=== PATIENT | male | born 1970 | race Caucasian/White ===

== ENCOUNTER 2017-12-29 20:11 | Observation (INO) ==
[2017-12-29] MEDS ORDERED: Ondansetron 4 MG/2 ML VIAL IVP ONE (20:29)
[2017-12-29] MEDS ORDERED: Isovue-370 500 ML INFUS..BTL IV ONE (20:58)
[2017-12-29 21:11] LABS: Basophils % 0.2 %; Eosinophils % 0.5 %; Hematocrit 39.5 % (37.5-50.1); Hemoglobin 13.7 g/dL (12.9-16.9); Immature Granulocytes % 0.5 % (0-4); Lymphocytes # 1.6 K/mcL (0.6-4.6); Lymphocytes % 29.5 %; Mean Corpuscular HGB Conc 34.7 g/dL (31.6-35.5); Mean Corpuscular Volume 83.7 fL (83.0-100.0); Mean Platelet Volume 11.4 fL (9.4-12.4); Monocytes # 0.6 K/mcL (0.0-1.3); Monocytes % 11.3 %; Neutrophils # 3.2 K/mcL (1.6-8.9); Platelet Count 187 K/mcL (140-400); Red Blood Count 4.72 M/mcL (4.19-5.50); Red Cell Distribution Width 16.8 % (11.5-14.5)
[2017-12-29 21:52] LABS: Alanine Aminotransferase > 500 Units/L (7-52); Albumin 3.4 g/dL (3.5-5.7); Albumin/Globulin Ratio 1.1 (1.1-2.2); Alkaline Phosphatase 186 Units/L (34-104); Aspartate Amino Transferase 200 Units/L (13-39); BUN/Creatinine Ratio 9 (6-26); Bilirubin,Direct 7.6 mg/dL (0.0-0.2); Bilirubin,Indirect 4.1 mg/dL (0.0-1.2); Bilirubin,Total 11.7 mg/dL (0.3-1.0); Blood Urea Nitrogen 11 mg/dL (6-20); Calcium 8.7 mg/dL (8.6-10.3); Carbon Dioxide 29 mEq/L (23-29); Chloride 98 mEq/L (98-107); Globulin 3.1 g/dL (2.4-3.5); Glucose 97 mg/dL (70-105); Lipase 42 Units/L (11-82); Osmolality,Calculated 279 (280-300); Potassium 3.8 mEq/L (3.5-5.1); Sodium 135 mEq/L (136-145); Total Protein 6.5 g/dL (6.4-8.9); eGFR For Non-African Americans > 60 (> 60)
[2017-12-29 22:03] LABS: Bilirubin,Urine Large (Negative); Clarity,Urine Slightly Hazy (Clear); Color,Urine Amber (Yellow); Glucose,Urine (UA) Normal (Normal)
[2017-12-29 22:04] LABS: Blood,Urine Negative (Negative); Ketones,Urine Negative (Negative); Leukocyte Esterase,Urine Negative (Negative); Nitrite,Urine Negative (Negative); Protein,Urine Trace mg/dL (Neg-Trace); Specific Gravity,Urine 1.012 (1.010-1.025); Urobilinogen,Urine Normal (Normal)
--- NOTE | 2017-12-29 22:26 | Emergency Department Note ---
Disposition Clinical Impression: Jaundice Abdominal pain Qualifiers: Abdominal location: epigastric Qualified Code(s): R10.13 - Epigastric pain Hepatitis A infection Qualifiers: Hepatic coma status: without hepatic coma Qualified Code(s): B15.9 - Hepatitis A without hepatic coma Hepatitis C infection Qualifiers: Viral hepatitis chronicity: unspecified Hepatic coma status: without hepatic coma Qualified Code(s): B19.20 - Unspecified viral hepatitis C without hepatic coma Disposition: Admitted As Inpatient Condition: Fair Time of Disposition: 01:49 Abdominal Pain HPI - General Chief Complaint: ED Abdominal Pain Stated Complaint: abdominal pain Time Seen by Provider: 12/29/17 20:26 Source: patient Mode of arrival: ambulatory Limitations: no limitations Nursing Notes Reviewed: Yes Vital Signs Reviewed: Yes - History of Present Illness HPI Narrative: Patient is a 47-year-old male who presents to [facility] ED with a chief complaint of epigastric abdominal pain. States his symptoms have been ongoing for the last 2 days. Admits to nausea, no vomiting. No fever or chills. Denies any prior abdominal surgeries. Patient admits to previously being an alcoholic. Also admits to current IV heroin abuse and follows with methadone clinic. Denies any known history of hepatitis though his fiancee has hepatitis C. Denies chest pain, difficulty breathing, problems with urination. Patient does mention that his stools have changed to a clerk rating color over the last few days. Pt Subjective Complaint: abdominal pain Onset (ago): day(s) Consistency: Worsening Location: epigastric Pain Severity: moderate Pain Scale: 6 Quality: aching Radiation: none Migration to: no migration Improves with: nothing Worsens with: nothing Associated symptoms: Reports: nausea. Denies: vomiting, diarrhea, fever, chills , constipation, dysuria Treatments prior to arrival: none - Related Data Previous Rx's Medication Instructions Recorded Cyclobenzaprine [Flexeril] 10 mg PO TID #21 tablet 04/12/17 Omeprazole [PriLOSEC] 20 mg PO DAILY #14 cap 04/12/17 Cephalexin [Keflex] 500 mg PO QID #40 capsule 09/01/17 Sulfamethoxazole/Trimeth DS 1 each PO BID #20 tablet 09/01/17 [Bactrim DS] Cyclobenzaprine [Flexeril] 10 mg PO BID PRN #14 tablet 12/15/17 Naproxen [Naprosyn] 500 mg PO BID PRN #20 tablet 12/15/17 Allergies Allergy/AdvReac Type Severity Reaction Status Date / Time hydrocodone AdvReac Itching Verified 04/12/17 02:10 All systems ED: reviewed and negative except as stated. Abdominal Pain PMH - Past Medical History Medical history: Reports: no medical history Male Surgical History: Reports: other Psychiatric history: Reports: no psych history - Social History Smoking status: Current every day smoker Alcohol use: Reports: none Drug use: Reports: none Physical Exam - General Limitations: no limitations General appearance: alert, in no apparent distress - Head Head exam: atraumatic, normocephalic, normal inspection - Eye Eye exam: Present: EOMI, scleral icterus - ENT ENT exam: normal exam, normal oropharynx, mucous membranes moist - Neck Neck exam: Present: normal inspection, full ROM, trachea midline - Chest Chest inspection: Present: normal inspection, symmetric chest wall rise - Respiratory Respiratory exam: Present: normal lung sounds bilaterally - Cardiovascular Cardiovascular exam: Present: regular rate, normal rhythm, normal heart sounds - Abdominal Exam Abdominal exam: Present: soft, tenderness Abdominal tenderness: Present: RUQ, LUQ, epigastrium, moderate - Extremities Exam Extremities exam: Present: normal inspection, full ROM. Absent: tenderness, pedal edema - Neurological Exam Neurological exam: Present: alert, oriented X3 - Psychiatric Psychiatric exam: Present: normal affect, normal mood - Skin Skin exam: Present: warm, dry, intact, other (Jaundice) Course Course Narrative: Patient seen and examined. Epigastric abdominal pain. Patient is obviously jaundiced with icterus. Abdominal labs, CT abdomen and pelvis with IV contrast ordered. - Reevaluation(s) Reevaluation #1: LFTs grossly elevated with a total bilirubin over 11. Still awaiting CT scan. Hepatitis panel ordered. Time: 22:27 Reevaluation #2: CT shows periportal edema consistent with hepatitis. Pt is positive for Hep A and C. discussed with GI Dr. Seo who will see the pt in consult. Discussed with hospitalist Dr. Hendrickson who has accepted pt for admission. Time: 01:22 Vital Signs Temperature 98.4 F 12/29/17 20:21 Pulse Rate 70 12/29/17 20:21 Respiratory Rate 16 12/29/17 20:21 Blood Pressure 105/67 12/29/17 20:21 O2 Sat by Pulse Oximetry 98 12/29/17 20:21 Temperature 98.4 F 12/29/17 20:21 Pulse Rate 66 12/29/17 22:30 Respiratory Rate 20 12/29/17 22:30 Blood Pressure 124/74 12/29/17 22:30 O2 Sat by Pulse Oximetry 98 12/29/17 22:30 Oxygen Delivery Oxygen Delivery Room Air Abdominal Pain - Medical Records Medical records reviewed: Yes I reviewed the patient's medical records. - Lab Data Lab results reviewed: Yes I reviewed the patient's lab results. Result diagrams: 12/29/17 20:52 12/29/17 20:52 Lab Results 12/29/17 12/29/17 12/29/17 Range/Units 20:52 20:52 20:52 WBC 5.5 (4.3-11.1) K/mcL RBC 4.72 (4.19-5.50) M/mcL Hgb 13.7 (12.9-16.9) g/dL Hct 39.5 (37.5-50.1) % MCV 83.7 (83.0-100.0) fL MCH 29.0 (28.0-33.3) pg MCHC 34.7 (31.6-35.5) g/dL RDW 16.8 H (11.5-14.5) % Plt Count 187 (140-400) K/mcL MPV 11.4 (9.4-12.4) fL Immature Gran % 0.5 (0-4) % Seg Neutrophils % 58.0 % Lymphocytes % 29.5 % Monocytes % 11.3 % Eosinophils % 0.5 % Basophils % 0.2 % Neutrophils # 3.2 (1.6-8.9) K/mcL Lymphocytes # 1.6 (0.6-4.6) K/mcL Monocytes # 0.6 (0.0-1.3) K/mcL Eosinophils # 0.0 (0.0-0.6) K/mcL Basophils # 0.0 (0.0-0.2) K/mcL Sodium 135 L (136-145) mEq/L Potassium 3.8 (3.5-5.1) mEq/L Chloride 98 (98-107) mEq/L Carbon Dioxide 29 (23-29) mEq/L BUN 11 (6-20) mg/dL Creatinine 1.16 (0.70-1.30) mg/dL Est GFR ( Amer) > 60 (> 60) Est GFR (Non-Af Amer) > 60 (> 60) BUN/Creatinine Ratio 9 (6-26) Glucose 97 (70-105) mg/dL Calculated Osmolality 279 L (280-300) Lactic Acid 1.0 (0.5-2.2) mmol/L Calcium 8.7 (8.6-10.3) mg/dL Total Bilirubin 11.7 H (0.3-1.0) mg/dL Direct Bilirubin 7.6 H (0.0-0.2) mg/dL Indirect Bilirubin 4.1 H (0.0-1.2) mg/dL AST 200 H (13-39) Units/L ALT > 500 H (7-52) Units/L Alkaline Phosphatase 186 H (34-104) Units/L Serum Total Protein 6.5 (6.4-8.9) g/dL Albumin 3.4 L (3.5-5.7) g/dL Globulin 3.1 (2.4-3.5) g/dL Albumin/Globulin Ratio 1.1 (1.1-2.2) Lipase 42 (11-82) Units/L Urine Color (Yellow) Urine Clarity (Clear) Urine pH (5.0-8.0) pH Units Ur Specific [place] (1.010-1.025) Urine Protein (Neg-Trace) mg/dL Urine Glucose (UA) (Normal) mg/dL Urine Ketones (Negative) mg/dL Urine Blood (Negative) Urine Nitrite (Negative) Urine Bilirubin (Negative) Urine Urobilinogen (Normal) mg/dL Ur Leukocyte Esterase (Negative) Ur Culture Indicated? (NO) Hepatitis A IgM Ab (Nonreactive) Hep Bs Antigen (Nonreactive) Hep B Core IgM Ab (Nonreactive) Hepatitis C Ab Screen (Nonreactive) 12/29/17 12/29/17 Range/Units 21:27 22:34 WBC (4.3-11.1) K/mcL RBC (4.19-5.50) M/mcL Hgb (12.9-16.9) g/dL Hct (37.5-50.1) % MCV (83.0-100.0) fL MCH (28.0-33.3) pg MCHC (31.6-35.5) g/dL RDW (11.5-14.5) % Plt Count (140-400) K/mcL MPV (9.4-12.4) fL Immature Gran % (0-4) % Seg Neutrophils % % Lymphocytes % % Monocytes % % Eosinophils % % Basophils % % Neutrophils # (1.6-8.9) K/mcL Lymphocytes # (0.6-4.6) K/mcL Monocytes # (0.0-1.3) K/mcL Eosinophils # (0.0-0.6) K/mcL Basophils # (0.0-0.2) K/mcL Sodium (136-145) mEq/L Potassium (3.5-5.1) mEq/L Chloride (98-107) mEq/L Carbon Dioxide (23-29) mEq/L BUN (6-20) mg/dL Creatinine (0.70-1.30) mg/dL Est GFR ( Amer) (> 60) Est GFR (Non-Af Amer) (> 60) BUN/Creatinine Ratio (6-26) Glucose (70-105) mg/dL Calculated Osmolality (280-300) Lactic Acid (0.5-2.2) mmol/L Calcium (8.6-10.3) mg/dL Total Bilirubin (0.3-1.0) mg/dL Direct Bilirubin (0.0-0.2) mg/dL Indirect Bilirubin (0.0-1.2) mg/dL AST (13-39) Units/L ALT (7-52) Units/L Alkaline Phosphatase (34-104) Units/L Serum Total Protein (6.4-8.9) g/dL Albumin (3.5-5.7) g/dL Globulin (2.4-3.5) g/dL Albumin/Globulin Ratio (1.1-2.2) Lipase (11-82) Units/L Urine Color Christa A (Yellow) Urine Clarity Slightly Hazy (Clear) Urine pH 6.0 (5.0-8.0) pH Units Ur Specific [place] 1.012 (1.010-1.025) Urine Protein Trace (Neg-Trace) mg/dL Urine Glucose (UA) Normal (Normal) mg/dL Urine Ketones Negative (Negative) mg/dL Urine Blood Negative (Negative) Urine Nitrite Negative (Negative) Urine Bilirubin Large H (Negative) Urine Urobilinogen Normal (Normal) mg/dL Ur Leukocyte Esterase Negative (Negative) Ur Culture Indicated? NO (NO) Hepatitis A IgM Ab Reactive H (Nonreactive) Hep Bs Antigen Nonreactive (Nonreactive) Hep B Core IgM Ab Nonreactive (Nonreactive) Hepatitis C Ab Screen Reactive H (Nonreactive) - Radiology Data Radiology results reviewed: Yes I reviewed the patient's radiology results. Abdomen/Pelvis CT 12/29/17 20:58 IMPRESSION: Periportal edema has developed in the interval. This is nonspecific and may be associated with acute hepatitis, cholangitis, primary biliary cirrhosis or hydration status. Nonspecific portacaval adenopathy. Stable hypodensities in the spleen since 04/12/2017. These may represent cysts or hemangiomas. D/ / Cristopher Perea MD / Cristopher Perea MD Interpreting Provider: Cristopher Perea MD Attestation Statement - Attestation Attestation: Dr Asher note: Pt seen in conjunction w/resident Dr Quintanilla; Please see her charting for complete docuentation; I agree w/ pt's treatment and disposition and spent face to face time w/ the pt; progressive abdominal discomfort for 3 days. Generalized fatigue. Patient noticed more yellowing of his skin of the last 2 days. Admits to IV drug abuse. Known hepatitis C and a. While signs are stable at time of admission. Will be admitted for supportive care and further evaluation. Symptoms were moderate and now mild. Accepted to the hospitalist Dr. Sabillon ; CT scan results and blood work has been reviewed.
[2017-12-29 23:44] LABS: Hepatitis B Core IgM Nonreactive (Nonreactive); Hepatitis B Surface Antigen Nonreactive (Nonreactive)
[2017-12-29 23:48] LABS: Hepatitis A Antibody IgM Reactive (Nonreactive)
[2017-12-29 23:49] LABS: Hepatitis C Virus Antibody Reactive (Nonreactive)
[2017-12-30] MEDS ORDERED: 0.9 % Sodium Chloride 1,000 ML IVC ONE ×2 (00:30→01:19)
[2017-12-30] MEDS ORDERED: Naloxone 0.4 MG/ML INJ IVP PRN (08:23)
[2017-12-30] MEDS ORDERED: Ringers Solution, Lactated 1,000 ML IVC SCH (08:30)
[2017-12-30] MEDS ORDERED: Methadone Oral Concentrate 50 MG/5 ML UDC PO SCH (09:00)
--- NOTE | 2017-12-30 09:11 | Internal Med History&Physical ---
Date of Encounter: 12/30/17 Time of Encounter: 08:30 Internal Medicine - H&P: HPI Chief complaint: "Yellow" Admitted From: Emergency Dept Plans for Post Hospital Care: Home History of present illness: Mr. Mccullough is a 47 year old male with no reported medical history presented to ED due to "yellow." Pt has noticed symptoms over last few days but was getting worse. No fever or chills. No N/V or diarrhea. Does have itching of his back. No prior history. Nothing made it better or worse. Evaluated in ED and placed in hospital for further workup. He started at Methadone clinic a month ago. Significant other had Hep C and took meds and is cured. At this time he is upset and wants to leave to smoke. Past Med Surg Social Fam HX - Past Medical History Medical history: no medical history Psychiatric history: no psych history - Past Surgical History Additional surgical history: r hand. r shoulder - Social History Smoking Status: Current every day smoker Packs per day: 1 Smokeless Tobacco Status: No Alcohol use: none Drug use: none - Family History Mother Race: Hx Family Cancer: No Hx Family GI Disorders: No Hx Family Medical Disorders: No Internal Medicine - H&P: Meds Methadone Oral Concentrate [Methadone] 50 mg PO DAILY 12/30/17 [History] Pantoprazole Sodium 40 mg PO DAILY #30 tablet. 12/30/17 [Rx] 3 Allergy/AdvReac Type Severity Reaction Status Date / Time hydrocodone AdvReac Itching Verified 12/30/17 11:25 All Systems PM: A 10-system review of systems was performed and is negative for pertinent findings except as documented above in the HPI. - Constitutional Constitutional: malaise - EENT Eyes: no diplopia, no pain Ears: no decreased hearing Nose, mouth and throat: no dry mouth, no nasal congestion - Cardiovascular Cardiovascular ROS IM: no chest pain, no orthopnea, no palpitations - Respiratory Respiratory: cough, no dyspnea on exertion, no chest congestion - Gastrointestinal Gastrointestinal: abdominal pain, no diarrhea, no nausea - Genitourinary Genitourinary ROS male: no difficulty urinating, no urinary hesitancy - Musculoskeletal Musculoskeletal ROS IM: no arthralgias, no muscle weakness - Integumentary Integumentary IM: no new lesions, no rash - Neurological Neurological ROS: no dizziness, no tingling - Endocrine Endocrine IM: no cold intolerance, no flushing - Hematologic/Lymphatic Hematologic/Lymphatic: no easy bleeding - Allergic/Immunologic Allergic/Immunologic: no itchy eyes, no wheezing - Constitutional Vitals: Temp Pulse Resp BP Pulse Ox 98.2 F 60 14 105/60 99 12/30/17 07:53 12/30/17 07:53 12/30/17 07:53 12/30/17 07:53 12/30/17 07:53 General appearance: Present: A&O X 3, answers questions appropriately Exam: See below - Head Head exam: Present: normocephalic - Eye Eye exam: Present: EOMI, scleral icterus Pupils: Present: PERRL - ENT ENT exam: Present: mucous membranes moist - Neck Neck exam general surgery: Present: normal inspection. Absent: thyromegaly - Respiratory Respiratory exam: Present: CTAB. Absent: rales, rhonchi, wheezes - Cardiovascular Cardiovascular exam: Present: RRR. Absent: systolic murmur, tachycardia - GI/Abdominal GI/Abdominal exam: Present: normal bowel sounds, soft. Absent: tenderness - Extremities Exam Extremities exam: Present: full ROM, warm - Neurological Exam Neurological exam: Present: alert, oriented X3, no focal deficits - Skin Additional comments: Jaundiced Internal Med - H&P Results - Labs CBC & Chem 7: 12/29/17 20:52 12/30/17 11:52 - Assessment and plan (1) Hepatitis A infection Status: Acute Assessment and plan: Place in observation. IV fluids. GI eval for further recommendations and outpatient follow up. Qualifiers: Hepatic coma status: without hepatic coma Qualified Code(s): B15.9 - Hepatitis A without hepatic coma (2) Hepatitis C infection Status: Acute Assessment and plan: Additional labs ordered. Follow up in GI office outpatient. Qualifiers: Viral hepatitis chronicity: unspecified Hepatic coma status: without hepatic coma Qualified Code(s): B19.20 - Unspecified viral hepatitis C without hepatic coma (3) Jaundice Status: Acute Assessment and plan: Due to acute hepatitis PRN Benadryl for itching. (4) GERD (gastroesophageal reflux disease) Status: Chronic Assessment and plan: PPI added Qualifiers: Esophagitis presence: esophagitis presence not specified Qualified Code(s) : K21.9 - Gastro-esophageal reflux disease without esophagitis (5) Tobacco abuse Status: Chronic Assessment and plan: Cessation counselling. (6) Opiate dependence Status: Chronic Assessment and plan: Continue methadone. Qualifiers: Substance use status: in remission Qualified Code(s): F11.21 - Opioid dependence, in remission - Time Spent With Patient Total time spent is greater than 50% in coordination of care (as documented) at patient's floor/unit and/or counseling patient:
[2017-12-30 11:33] VITALS: BP 93/53
--- NOTE | 2017-12-30 12:10 | Discharge Summary ---
- NOTES TO OUTPATIENT PROVIDER Notes to Outpatient Provider: Pt diagnosed with acute hep A and positive for hep C. Following up with GI. Orders not resulted at time of discharge: Pending orders 12/30/17 11:52 AFP Tumor Marker Non- Stat ADRIAN IgG RODNEY rflx IFA Stat Usoxa-2-Oegllkyrfnq Stat Ceruloplasmin Stat Comprehensive Metabolic Panel Stat Ferritin Stat Hepatitis C Qnt Reflx Genotype Stat MPO/PR3 (ANCA) Antibodies Stat PT/INR [Prothrombin Time INR] [COAG] Stat 12/30/17 12:02 F-Actin IgG Reflex Sm Muscle Stat Mitochondrial M2 Antibody, IgG Stat Date of Encounter: 12/30/17 Time of Encounter: 12:07 - Discharge Diagnosis (1) Hepatitis A infection Priority: Primary Status: Acute Qualifiers: Hepatic coma status: without hepatic coma Qualified Code(s): B15.9 - Hepatitis A without hepatic coma (2) Hepatitis C infection Priority: Secondary Status: Acute Qualifiers: Viral hepatitis chronicity: unspecified Hepatic coma status: without hepatic coma Qualified Code(s): B19.20 - Unspecified viral hepatitis C without hepatic coma (3) Jaundice Priority: Secondary Status: Acute (4) GERD (gastroesophageal reflux disease) Priority: Secondary Status: Chronic Qualifiers: Esophagitis presence: esophagitis presence not specified Qualified Code(s) : K21.9 - Gastro-esophageal reflux disease without esophagitis (5) Opiate dependence Priority: Secondary Status: Chronic Qualifiers: Substance use status: in remission Qualified Code(s): F11.21 - Opioid dependence, in remission (6) Tobacco abuse Priority: Secondary Status: Chronic Hospital course: Mr. Mccullough is a 47 year old male placed in observation for jaundice. Found to have acute hep A and positive hep C. Mr Mccullough was placed in observation. He was started on IV fluids and continued on his home methadone. He was evaluated by GI and further labs drawn. He is to follow up as outpatient. Discharge discussed with: patient Time spent discussing smoking cessation with patient: 3 to 10 minutes - Time Spent with Patient Total time spent providing and/or coordinating discharge services: - Discharge Medications Prescriptions: Pantoprazole Sodium 40 mg PO DAILY #30 tablet. Home Medications: Methadone Oral Concentrate [Methadone] 50 mg PO DAILY 12/30/17 [History] Pantoprazole Sodium 40 mg PO DAILY #30 tablet. 12/30/17 [Rx] Allergies/Adverse Reactions: 3 Allergy/AdvReac Type Severity Reaction Status Date / Time hydrocodone AdvReac Itching Verified 12/30/17 11:25 Date of admission: 12/30/17 01:52 Primary care physician: PCP NONE Consults: 12/30/17 02:38 Consult to Nutrition [CONS] Routine Comment: Consulting Provider: NUTRITION Reason for Dietary Consult: Other Discharging clinician: Tomás Mon Anticipated date of discharge: 12/30/17 - Constitutional Vitals: Temp Pulse Resp BP Pulse Ox 97.9 F 58 14 93/53 98 12/30/17 11:32 12/30/17 11:32 12/30/17 11:32 12/30/17 11:32 12/30/17 11:32 General appearance: Present: A&O X 3, pleasant Exam: See below - Head Head exam: Present: normocephalic - Eye Eye exam: Present: scleral icterus - Respiratory Respiratory exam: Present: CTAB. Absent: rales, wheezes - Cardiovascular Cardiovascular exam: Present: RRR. Absent: tachycardia - Skin Additional comments: Jaundiced. - Patient Status Disposition: Home, Self-Care Condition: Good Functional capacity at discharge: independent ambulation Overall status at discharge: patient is progressing back to baseline - Discharge Instructions Follow Up With: Freddie Diego MD [Partnered Physician] - 01/06/18 9:15 am (You will receive a new patient packet in the mail. Please bring this with you along with your photo ID, insurance card and any medications you are on. If you need to cancel , please give a 24 hour notice. Thank you) Kathy Seo MD [Partnered Physician] - (Web request entered. Office will call with the date and time of appointment. Thank you) Additional Instructions: Follow up with PCP in 1 week. Follow up with GI in 2-3 weeks. Advance to usual diet, activity as tolerated. - Diet and Activity Activity: increase activity as tolerated Diet: advance to your usual diet
[2017-12-30 12:11] LABS: Prothrombin Time 11.2 Seconds (9.4-12.1)
[2017-12-30 13:35] LABS: Alanine Aminotransferase > 500 Units/L (7-52); Albumin 2.9 g/dL (3.5-5.7); Alkaline Phosphatase 161 Units/L (34-104); Aspartate Amino Transferase 163 Units/L (13-39); BUN/Creatinine Ratio 11 (6-26); Bilirubin,Total 9.7 mg/dL (0.3-1.0); Blood Urea Nitrogen 9 mg/dL (6-20); Calcium 8.1 mg/dL (8.6-10.3); Carbon Dioxide 27 mEq/L (23-29); Chloride 107 mEq/L (98-107); Ferritin 278 ng/mL (20-250); Globulin 2.9 g/dL (2.4-3.5); Glucose 111 mg/dL (70-105); Osmolality,Calculated 283 (280-300); Sodium 137 mEq/L (136-145); Total Protein 5.8 g/dL (6.4-8.9); eGFR For Non-African Americans > 60 (> 60)
--- NOTE | 2017-12-30 14:13 | Gastroenterology Consult Note ---
Date of Encounter: 12/30/17 Time of Encounter: 11:00 - Assessment and plan (1) Hepatitis C antibody test positive Status: Acute Assessment and plan: Hep C screening positive. Check Hep C quant and genotype to determine if he has an active infection. Complete liver workup. Follow up in GI office in 3-4 weeks. (2) Hepatitis A infection Status: Acute Assessment and plan: Hepatitis A positive. On admission TB 11.7, AST 200, ALT >500. Today TB 9.7, AST 163, ALT >500. Continue to monitor hepatic profile, and follow up in GI office. Qualifiers: Hepatic coma status: without hepatic coma Qualified Code(s): B15.9 - Hepatitis A without hepatic coma (3) Jaundice Status: Acute Assessment and plan: Secondary to hepatitis A. (4) GERD (gastroesophageal reflux disease) Status: Acute Assessment and plan: Start PPI, if symptoms not improved in 4 weeks will consider EGD. Qualifiers: Esophagitis presence: esophagitis presence not specified Qualified Code(s) : K21.9 - Gastro-esophageal reflux disease without esophagitis - Time Spent With Patient Total time spent is greater than 50% in coordination of care (as documented) at patient's floor/unit and/or counseling patient: GI History of Present Illness - Data of Consult Patient: new to practice Consult date: 12/30/17 Requesting Physician: Tomás Mon DO - Consult Narrative Reason for consult: Hepatitis A and C History of present illness: Mr. Mccullough is a 47 year old male who presents with complaints of epigastric pain that started 2 days prior to admission. He admits to nausea, but denies vomiting. In the ED he admited to current IV heroin abuse and following with methadone clinic, during my exam he denied any IV drug use. He did admit to intranasal drug use. Denies any known history of hepatitis though his fiancee has been treated for hepatitis C recently. He denies fever, chills, chest pain, difficulty breathing, diarrhea, constipation, melena. Hepatitis profile positive for Hep A and C. CT A/P shows periportal edema Procedure: None NSAIDs: None Anticoagulation: None Past Med Surg Social Fam HX - Past Medical History Medical history: no medical history Psychiatric history: no psych history - Past Surgical History Additional surgical history: r hand. r shoulder - Social History Smoking Status: Current every day smoker Packs per day: 1 Smokeless Tobacco Status: No Alcohol use: none Drug use: none - Gastrointestinal Gastrointestinal: Present: as per HPI - Constitutional Constitutional: as per HPI - EENT Eyes: as per HPI Ears: Present: as per HPI Nose, mouth and throat: Present: as per HPI - Cardiovascular Cardiovascular ROS: Present: as per HPI - Respiratory Respiratory IM: Present: as per HPI - Genitourinary Genitourinary: Absent: change in color, Urinary frequency - Neurological ROS Neurological GI: Present: as per HPI - Hematologic/Lymphatic Hematologic/Lymphatic pediatric: Present: as per HPI - Musculoskeletal Musculoskeletal ROS GI: Present: as per HPI - Integumentary Integumentary GI: Present: as per HPI - Psychiatric ROS Psychiatric GI: Present: as per HPI - Endocrine Endocrine IM: Present: as per HPI - Constitutional Vitals: Temp Pulse Resp BP Pulse Ox 97.9 F 58 14 93/53 98 12/30/17 11:32 12/30/17 11:32 12/30/17 11:32 12/30/17 11:32 12/30/17 11:32 General appearance: Present: cooperative, A&O X 3, no acute distress, answers questions appropriately - Head Head exam: Present: atraumatic, normocephalic - Eye Eye exam: Present: scleral icterus - ENT ENT exam: Present: mucous membranes moist - Neck Neck exam general surgery: Present: normal inspection, trachea midline - Respiratory Respiratory exam: Present: CTAB. Absent: rales, rhonchi - Cardiovascular Cardiovascular exam: Present: RRR, +S1, +S2 - GI/Abdominal GI/Abdominal exam: Present: soft, tenderness (epigastric), no peritoneal signs. Absent: distended, firm, guarding - Rectal Rectal exam: Present: deferred - Extremities Exam Extremities exam: Present: warm - Neurological Exam Neurological exam: Present: no focal deficits - Psychiatric Psychiatric exam: Present: normal affect, normal mood - Skin Skin exam: Present: dry, intact, warm. Absent: normal color (Jaundice) Results - Labs CBC & Chem 7: 12/29/17 20:52 12/30/17 11:52 Labs: Last Result Calcium 8.1 mg/dL (8.6-10.3) L 12/30/17 11:52 Ferritin 278 ng/mL (20-250) H 12/30/17 11:52 Entire Visit Hgb 13.7 g/dL (12.9-16.9) 12/29/17 20:52 Hct 39.5 % (37.5-50.1) 12/29/17 20:52 PT 11.2 Seconds (9.4-12.1) 12/30/17 11:52 Ferritin 278 ng/mL (20-250) H 12/30/17 11:52 Total Bilirubin 9.7 mg/dL (0.3-1.0) H 12/30/17 11:52 AST 163 Units/L (13-39) H 12/30/17 11:52 ALT > 500 Units/L (7-52) H 12/30/17 11:52 Lipase 42 Units/L (11-82) 12/29/17 20:52 - ABG ABG results: PT/INR, D-dimer PT 11.2 Seconds (9.4-12.1) 12/30/17 11:52 Consult Discharge Plan - Plan Additional Instructions: Follow up with PCP in 1 week. Follow up with GI in 2-3 weeks. Advance to usual diet, activity as tolerated. Referrals: Freddie Diego MD [Partnered Physician] - 01/06/18 9:15 am (You will receive a new patient packet in the mail. Please bring this with you along with your photo ID, insurance card and any medications you are on. If you need to cancel , please give a 24 hour notice. Thank you) Kathy Seo MD [Partnered Physician] - (Web request entered. Office will call with the date and time of appointment. Thank you) Prescriptions: Pantoprazole Sodium 40 mg PO DAILY #30 tablet.
[2018-01-02 07:55] LABS: AFP Tumor Marker Non-Pregnant 10 ng/mL (0-9); ANA IgG by ELISA NONE DETECTED (None Detected); HCV Quant Log <1.00 log IU/mL; Myeloperoxidase Ab 0 AU/mL (0-19); Serine Protease-3 Antibody 1 AU/mL (0-19)
[2018-01-02 07:56] LABS: F-Actin (sm muscle) Ab IgG 13 Units (0-19)
== END 2017-12-30 12:56 | disposition home or self-care (01) ==
LOC: 3ANU 20:11 → EMEROOARM 20:11 → SUATTDRO 12-30 01:52 → 3ANU 12-30 02:16
PROVIDERS: ADMIT Internal Medicine; ATTEND Internal Medicine

== ENCOUNTER 2018-02-09 19:12 | Inpatient (IN) ==
[2018-02-09] MEDS ORDERED: 0.9 % Sodium Chloride 1,000 ML IVC ONE (20:01)
[2018-02-09 20:23] LABS: Basophils % 0.4 %; Eosinophils # 0.1 K/mcL (0.0-0.6); Eosinophils % 2.1 %; Hematocrit 31.6 % (37.5-50.1); Hemoglobin 10.8 g/dL (12.9-16.9); Immature Granulocytes % 0.5 % (0-4); Lymphocytes # 1.5 K/mcL (0.6-4.6); Lymphocytes % 26.1 %; Mean Corpuscular HGB Conc 34.2 g/dL (31.6-35.5); Mean Corpuscular Hemoglobin 30.3 pg (28.0-33.3); Mean Corpuscular Volume 88.5 fL (83.0-100.0); Mean Platelet Volume 10.6 fL (9.4-12.4); Monocytes # 0.6 K/mcL (0.0-1.3); Monocytes % 11.1 %; Neutrophils # 3.4 K/mcL (1.6-8.9); Platelet Count 184 K/mcL (140-400); Red Blood Count 3.57 M/mcL (4.19-5.50); Red Cell Distribution Width 17.5 % (11.5-14.5); Segmented Neutrophils % 59.8 %
[2018-02-09 20:28] LABS: INR 1.2
--- NOTE | 2018-02-09 20:42 | Emergency Department Note ---
Disposition Clinical Impression: Hepatitis Disposition: Admitted As Inpatient Condition: Good Time of Disposition: 00:05 General Adult HPI - General Chief complaint: ED Recheck/Abnormal Lab/Rx Stated complaint: "Hep A sent by " Time Seen by Provider: 02/09/18 19:54 Source: patient Limitations: no limitations Nursing Notes Reviewed: Yes Vital Signs Reviewed: Yes - History of Present Illness HPI Narrative: 48 y/o M with recently diagnosed hepatitis A and C 1 month ago presents with worsening jaundice for the past 5 days and abdominal pain for the last 3 days. Patient states that he had blood work done by his PCP 5 days ago at onset of his jaundice and received a call today stating that his liver enzymes were acutely elevated and recommended he come into the hospital for evaluation given the additional onset of pain. Patient states the abdominal pain is located in the RUQ rated as a 6/10. He notes some abebe stools since onset of the jaundice but denies any nausea, vomiting, fevers, chest pain, SOB, extremity swelling or hematochezia and hematuria. Patient began using IV heroin intermittently 2-3 months ago and has been taking Methadone in an attempt to stop. Last used IV heroin 2 days ago. Patient denies recent alcohol use. Of note, patient had titers drawn to determine the activity of his Hep C infection but has not yet had his results reported to him. He is set to see GI on March 06, 2018. Pain Scale: 5 - Related Data Home Medications Medication Instructions Recorded Confirmed Methadone Oral Concentrate 60 mg PO DAILY 02/10/18 02/10/18 [Methadone] Allergies Allergy/AdvReac Type Severity Reaction Status Date / Time hydrocodone AdvReac Itching Verified 12/30/17 11:25 Constitutional: Denies: fever, chills, weakness Eyes: Reports: other (jaundice) Cardiovascular: Denies: chest pain, palpitations, dyspnea on exertion, edema, syncope Respiratory: Denies: cough, dyspnea, wheezes, hemoptysis Gastrointestinal: Reports: abdominal pain (RUQ), other (abebe stools). Denies: nausea, vomiting, diarrhea Genitourinary: Reports: other (dark urine). Denies: urgency, dysuria, frequency , hematuria Musculoskeletal: Denies: back pain, neck pain, arthralgia, myalgia Integumentary: Denies: rash, abrasion, lesions, pruritus Neurological: Denies: headache, weakness, numbness, paresthesias, confusion, abnormal gait Past Medical History - Past Medical History Medical history: Reports: hepatitis Psychiatric history: Reports: no psych history - Social History Smoking Status: Current every day smoker Smokeless Tobacco Status: No Alcohol use: Reports: none Drug use: Reports: IV Drug Use Physical Exam - General Limitations: no limitations General appearance: alert, in no apparent distress - Head Head exam: atraumatic, normocephalic, normal inspection - Eye Eye exam: Present: PERRL, scleral icterus - ENT ENT exam: normal oropharynx, mucous membranes moist, mucous membranes dry, other (jaundice sublingual mucosa) - Neck Neck exam: Present: normal inspection, full ROM, trachea midline - Chest Chest inspection: Present: normal inspection, symmetric chest wall rise - Respiratory Respiratory exam: Present: normal lung sounds bilaterally - Cardiovascular Cardiovascular exam: Present: regular rate, normal rhythm, normal heart sounds - Abdominal Exam Abdominal exam: Present: soft, normal bowel sounds. Absent: distention, guarding, rebound, rigidity Abdominal tenderness: Present: RUQ - Extremities Exam Extremities exam: Present: normal inspection, full ROM. Absent: tenderness, pedal edema - Neurological Exam Neurological exam: Present: alert, oriented X3 - Psychiatric Psychiatric exam: Present: normal affect, normal mood - Skin Skin exam: Present: warm, dry, intact, other (jaundiced). Absent: rash Course - Consultations Consultation #1: The case was signed out to Dr. Hughes. Dr. Hughes did discuss with the hospitalist on my behalf. Patient was accepted for admission. Vital Signs Temperature 98.6 F 02/09/18 19:31 Pulse Rate 64 02/09/18 19:31 Respiratory Rate 15 02/09/18 19:31 Blood Pressure 118/78 02/09/18 19:31 O2 Sat by Pulse Oximetry 100 02/09/18 19:31 Temperature 97.9 F 02/10/18 18:49 Pulse Rate 50 02/10/18 18:49 Respiratory Rate 14 02/10/18 18:49 Blood Pressure 98/60 02/10/18 18:49 O2 Sat by Pulse Oximetry 100 02/10/18 18:49 Oxygen Delivery Oxygen Delivery Room Air Medical Decision Making - MDM Narrative Medical decision making narrative: Patient presented with RUQ abdominal pain which was the same pain he felt during his initial visit and subsequent diagnosis with Hep A and Hep C. Patient significantly jaundiced on exam with significant tenderness to RUQ. Blood work done here in the ED shows liver enzymes elevated >500 as well as a total billiubin of 13.7. Given location of pain US of the gallbladder ordered to rule out acute cholecystitis as a contributor to his current abdominal pain. Patient will be admitted in order to control his pain, fluid resuscitate and further evaluate his hepatitis. Spoke with the patient concerning this plan and he is in understanding and agreement. I discussed the patient's situation with the on-call hospitalist, who accepted him for admission. - Lab Data Lab results reviewed: Yes I reviewed the patient's lab results. Lab results narrative: Bilirubin was elevated at 8.8 with elevation in AST and ALTs as well Result diagrams: 02/10/18 05:21 02/10/18 05:21 Lab Results 02/09/18 02/09/18 02/09/18 Range/Units 20:08 20:08 20:08 WBC 5.7 (4.3-11.1) K/mcL RBC 3.57 L (4.19-5.50) M/mcL Hgb 10.8 L (12.9-16.9) g/dL Hct 31.6 L (37.5-50.1) % MCV 88.5 (83.0-100.0) fL MCH 30.3 (28.0-33.3) pg MCHC 34.2 (31.6-35.5) g/dL RDW 17.5 H (11.5-14.5) % Plt Count 184 (140-400) K/mcL MPV 10.6 (9.4-12.4) fL Immature Gran % 0.5 (0-4) % Seg Neutrophils % 59.8 % Lymphocytes % 26.1 % Monocytes % 11.1 % Eosinophils % 2.1 % Basophils % 0.4 % Neutrophils # 3.4 (1.6-8.9) K/mcL Lymphocytes # 1.5 (0.6-4.6) K/mcL Monocytes # 0.6 (0.0-1.3) K/mcL Eosinophils # 0.1 (0.0-0.6) K/mcL Basophils # 0.0 (0.0-0.2) K/mcL PT 13.0 H (9.4-12.1) Seconds INR 1.2 Sodium 134 L (136-145) mEq/L Potassium 3.6 (3.5-5.1) mEq/L Chloride 102 (98-107) mEq/L Carbon Dioxide 25 (23-29) mEq/L BUN 9 (6-20) mg/dL Creatinine 0.81 (0.70-1.30) mg/dL Est GFR ( Amer) > 60 (> 60) Est GFR (Non-Af Amer) > 60 (> 60) BUN/Creatinine Ratio 11 (6-26) Glucose 134 H (70-105) mg/dL Calculated Osmolality 279 L (280-300) Lactic Acid (0.5-2.2) mmol/L Calcium 8.8 (8.6-10.3) mg/dL Total Bilirubin 13.7 H (0.3-1.0) mg/dL Direct Bilirubin 8.8 H (0.0-0.2) mg/dL Indirect Bilirubin 4.9 H (0.0-1.2) mg/dL AST 515 H (13-39) Units/L ALT > 500 H (7-52) Units/L Alkaline Phosphatase 157 H (34-104) Units/L Serum Total Protein 7.1 (6.4-8.9) g/dL Albumin 3.3 L (3.5-5.7) g/dL Globulin 3.8 H (2.4-3.5) g/dL Albumin/Globulin Ratio 0.9 L (1.1-2.2) Lipase 28 (11-82) Units/L Urine Color (Yellow) Urine Clarity (Clear) Urine pH (5.0-8.0) pH Units Ur Specific [place] (1.010-1.025) Urine Protein (Neg-Trace) mg/dL Urine Glucose (UA) (Normal) mg/dL Urine Ketones (Negative) mg/dL Urine Blood (Negative) Urine Nitrite (Negative) Urine Bilirubin (Negative) Urine Urobilinogen (Normal) mg/dL Ur Leukocyte Esterase (Negative) Urine Microscopic RBC (0-3) per hpf Urine Microscopic WBC (0-3) per hpf Ur Squamous Epith Cells (None-Few) per lpf Other Crystals Urine Bacteria (None-Few) per hpf Urine Mucus (Few) Ur Culture Indicated? (NO) Acetaminophen < 10 L (10-20) mcg/mL Hepatitis A IgM Ab (Nonreactive) Hep Bs Antigen (Nonreactive) Hep B Core IgM Ab (Nonreactive) Hepatitis C Ab Screen (Nonreactive) 02/09/18 02/09/18 02/09/18 Range/Units 20:08 20:08 20:20 WBC (4.3-11.1) K/mcL RBC (4.19-5.50) M/mcL Hgb (12.9-16.9) g/dL Hct (37.5-50.1) % MCV (83.0-100.0) fL MCH (28.0-33.3) pg MCHC (31.6-35.5) g/dL RDW (11.5-14.5) % Plt Count (140-400) K/mcL MPV (9.4-12.4) fL Immature Gran % (0-4) % Seg Neutrophils % % Lymphocytes % % Monocytes % % Eosinophils % % Basophils % % Neutrophils # (1.6-8.9) K/mcL Lymphocytes # (0.6-4.6) K/mcL Monocytes # (0.0-1.3) K/mcL Eosinophils # (0.0-0.6) K/mcL Basophils # (0.0-0.2) K/mcL PT (9.4-12.1) Seconds INR Sodium (136-145) mEq/L Potassium (3.5-5.1) mEq/L Chloride (98-107) mEq/L Carbon Dioxide (23-29) mEq/L BUN (6-20) mg/dL Creatinine (0.70-1.30) mg/dL Est GFR ( Amer) (> 60) Est GFR (Non-Af Amer) (> 60) BUN/Creatinine Ratio (6-26) Glucose (70-105) mg/dL Calculated Osmolality (280-300) Lactic Acid 1.6 (0.5-2.2) mmol/L Calcium (8.6-10.3) mg/dL Total Bilirubin (0.3-1.0) mg/dL Direct Bilirubin (0.0-0.2) mg/dL Indirect Bilirubin (0.0-1.2) mg/dL AST (13-39) Units/L ALT (7-52) Units/L Alkaline Phosphatase (34-104) Units/L Serum Total Protein (6.4-8.9) g/dL Albumin (3.5-5.7) g/dL Globulin (2.4-3.5) g/dL Albumin/Globulin Ratio (1.1-2.2) Lipase (11-82) Units/L Urine Color [place] A (Yellow) Urine Clarity Turbid A (Clear) Urine pH 6.0 (5.0-8.0) pH Units Ur Specific [place] 1.019 (1.010-1.025) Urine Protein Trace (Neg-Trace) mg/dL Urine Glucose (UA) Normal (Normal) mg/dL Urine Ketones Negative (Negative) mg/dL Urine Blood Negative (Negative) Urine Nitrite Negative (Negative) Urine Bilirubin Large H (Negative) Urine Urobilinogen Normal (Normal) mg/dL Ur Leukocyte Esterase Small H (Negative) Urine Microscopic RBC 0-3 (0-3) per hpf Urine Microscopic WBC 0-3 (0-3) per hpf Ur Squamous Epith Cells Few (None-Few) per lpf Other Crystals Present Urine Bacteria Few (None-Few) per hpf Urine Mucus Many H (Few) Ur Culture Indicated? YES A (NO) Acetaminophen (10-20) mcg/mL Hepatitis A IgM Ab [place] H (Nonreactive) Hep Bs Antigen Nonreactive (Nonreactive) Hep B Core IgM Ab Nonreactive (Nonreactive) Hepatitis C Ab Screen Reactive H (Nonreactive) - Radiology Data Radiology results reviewed: Yes I reviewed the patient's radiology results. gallbladder ultrasound and pericholecystic fluid Critical Care Time Critical Care Time: No
[2018-02-09 20:46] LABS: Clarity,Urine Turbid (Clear); Color,Urine Orange (Yellow); Glucose,Urine (UA) Normal (Normal)
[2018-02-09 20:47] LABS: Bilirubin,Urine Large (Negative); Blood,Urine Negative (Negative); Ketones,Urine Negative (Negative); Leukocyte Esterase,Urine Small (Negative); Nitrite,Urine Negative (Negative); Protein,Urine Trace mg/dL (Neg-Trace); Specific Gravity,Urine 1.019 (1.010-1.025); Urobilinogen,Urine Normal (Normal)
[2018-02-09 20:47] LABS: Acetaminophen < 10 mcg/mL (10-20); Alanine Aminotransferase > 500 Units/L (7-52); Albumin 3.3 g/dL (3.5-5.7); Albumin/Globulin Ratio 0.9 (1.1-2.2); Alkaline Phosphatase 157 Units/L (34-104); Aspartate Amino Transferase 515 Units/L (13-39); BUN/Creatinine Ratio 11 (6-26); Bilirubin,Direct 8.8 mg/dL (0.0-0.2); Bilirubin,Indirect 4.9 mg/dL (0.0-1.2); Bilirubin,Total 13.7 mg/dL (0.3-1.0); Blood Urea Nitrogen 9 mg/dL (6-20); Calcium 8.8 mg/dL (8.6-10.3); Carbon Dioxide 25 mEq/L (23-29); Chloride 102 mEq/L (98-107); Globulin 3.8 g/dL (2.4-3.5); Glucose 134 mg/dL (70-105); Lipase 28 Units/L (11-82); Osmolality,Calculated 279 (280-300); Potassium 3.6 mEq/L (3.5-5.1); Sodium 134 mEq/L (136-145); Total Protein 7.1 g/dL (6.4-8.9); eGFR For Non-African Americans > 60 (> 60)
[2018-02-09 20:54] LABS: Mucus,Urine Many (Few)
[2018-02-09 20:55] LABS: RBC,Urine 0-3 per hpf (0-3); Squamous Epithelial Cell,Urine Few per lpf (None-Few); WBC,Urine 0-3 per hpf (0-3)
[2018-02-09 20:56] LABS: Bacteria,Urine Few per hpf (None-Few)
[2018-02-09 22:10] LABS: Hepatitis B Core IgM Nonreactive (Nonreactive); Hepatitis B Surface Antigen Nonreactive (Nonreactive)
[2018-02-09 22:47] LABS: Hepatitis C Virus Antibody Reactive (Nonreactive)
[2018-02-10] MEDS ORDERED: Naloxone 0.4 MG/ML INJ IVP PRN (03:22)
[2018-02-10] MEDS ORDERED: Ondansetron 4 MG/2 ML VIAL IVP PRN (03:22)
--- NOTE | 2018-02-10 04:23 | Internal Med History&Physical ---
Date of Encounter: 02/10/18 Time of Encounter: 03:00 Internal Medicine - H&P: HPI Chief complaint: abdominal pain Admitted From: Emergency Dept Plans for Post Hospital Care: Home History of present illness: Mr. Mccullough is a 48 year old male who presents with abdominal pain for the last 2 days. Appetite has been minimal. He has had no vomiting, no diarrhea, but he has had some nausea. He noticed his stool color changing to iveth color lately. He was hospitalized roughly 1 month ago with acute hepatitis. At that time, he had a hepatitis C viral load which was undetectable. Reportedly, he had hepatitis C antibody testing positive then, but I cannot confirm this. During this admission to the ER, he was diagnosed with hepatitis C positive antibody screen. Hepatitis A testing is pending. Since his last admission, his symptoms improved but they never fully resolved. Then, over the last few days, his abdominal pain, appetite loss, and jaundice worsened. He therefore came to ER for evaluation. Upon my assessment of the patient, he appears jaundiced, dehydrated, and is having some mild to moderate right upper quadrant abdominal pain. He denies any vomiting or diarrhea. He has had minimal nausea. He has had appetite loss and decreased fluid intake. He denies any acute ill contacts with mononucleosis , hepatitis, or flulike illnesses. He has a history of IV drug abuse, but he has been clean for several months. He is on methadone at a local methadone clinic. He has been HIV tested in the recent past and states he has been HIV negative. Patient had a gallbladder ultrasound performed in the ER which revealed gallbladder wall thickening and small amount of pericholecystic fluid. Regarding gallbladder symptoms, he denies any specific food intolerance. He denies any problems with fatty, greasy, or roughage-type foods. He does have some heartburn with spicy foods like pizza sauce. Otherwise, he can usually eat anything without any problems. He denies any excessive alcohol use or any acetaminophen use. Of note, acetaminophen level in the ER was undetectable. Past Med Surg Social Fam HX - Past Medical History Attestation: Yes The following information was validated with the patient. Source: patient, old records reviewed Medical history: hepatitis (hepatitis C) Psychiatric history: no psych history - Past Surgical History Surgical History: orthopedic, other Additional surgical history: r hand. r shoulder - Social History Smoking Status: Current every day smoker Smokeless Tobacco Status: No Alcohol use: none Drug use: IV Drug Use (clean last 2 months per patient; currently enrolled in [facility] clinic locally) Occupational status: employed Current living situation: Home Activity Level: Independent ambulation Recent Out of Country Travel Within the Last 8 Weeks: No - Family History Mother Name: Ernestina Wu Age: 76 Living Status: Still Living Hx Family Cancer: Yes (Lung and breast cancer.) Hx Family GI Disorders: No Hx Family Neuromuscular Disorders: Yes (Arthritis) Internal Medicine - H&P: Meds No Known Home Drugs 02/09/18 [History] 3 Allergy/AdvReac Type Severity Reaction Status Date / Time hydrocodone AdvReac Itching Verified 12/30/17 11:25 - Constitutional Constitutional: fatigue, no chills, no fever(s), no night sweats - EENT Eyes: no blurry vision, no change in vision Ears: no ear pain, no tinnitus Nose, mouth and throat: no nasal congestion, no sinus pressure, no sore throat - Cardiovascular Cardiovascular ROS IM: no chest pain, no dyspnea, no dyspnea on exertion - Respiratory Respiratory: no cough, no hemoptysis, no chest congestion, no excessive phlegm production, no change in phlegm color - Gastrointestinal Gastrointestinal: abdominal pain (RUQ), change in stool character (iveth colored stools), no constipation, no diarrhea, no hematemesis, no hematochezia, no melena, no vomiting - Genitourinary Genitourinary ROS male: no dysuria, no flank pain, no hematuria - Musculoskeletal Musculoskeletal ROS IM: no arthralgias, no back pain - Integumentary Integumentary IM: jaundice, no rash - Neurological Neurological ROS: no dizziness, no focal weakness, no frequent falls, no headache(s), no numbness - Psychiatric Psychiatric: no anxiety, no depression - Endocrine Endocrine IM: no cold intolerance, no heat intolerance, no polydipsia, no polyuria - Hematologic/Lymphatic Hematologic/Lymphatic: no easy bruising, no lymphadenopathy - Allergic/Immunologic Allergic/Immunologic: no wheezing, no GI upset with certain foods - Constitutional Vitals: Temp Pulse Resp BP Pulse Ox 98.8 F 57 14 105/62 99 02/10/18 03:46 02/10/18 03:46 02/10/18 03:46 02/10/18 03:46 02/10/18 03:46 General appearance: Present: cooperative, mild distress, A&O X 3, pleasant, answers questions appropriately Exam: appears jaundiced - Head Head exam: Present: normal inspection - Eye Eye exam: Present: EOMI, PERRL, scleral icterus Pupils: Present: normal accommodation - ENT ENT exam: Present: mucous membranes dry, normal exam, normal oropharynx - Neck Neck exam general surgery: Present: full ROM, supple. Absent: tenderness, nuchal rigidity, thyromegaly - Respiratory Respiratory exam: Present: CTAB. Absent: chest wall tenderness, rales, rhonchi , wheezes - Cardiovascular Cardiovascular exam: Present: RRR, +S1, +S2. Absent: diastolic murmur, systolic murmur - GI/Abdominal GI/Abdominal exam: Present: normal bowel sounds, soft, tenderness (RUQ--> midepigastrium), no peritoneal signs. Absent: guarding, hepatomegaly, mass, rebound, splenomegaly - Extremities Exam Extremities exam: Present: full ROM, normal capillary refill, warm, radial pulses palpable and symmetrical. Absent: calf tenderness, joint swelling, pedal edema, tenderness - Back Exam Back exam: Present: normal inspection. Absent: CVA tenderness (L), CVA tenderness (R) - Neurological Exam Neurological exam: Present: alert, CN II-XII intact, oriented X3, no focal deficits - Psychiatric Psychiatric exam: Present: normal affect, normal mood - Skin Skin exam: Present: dry, warm Additional comments: jaundiced Internal Med - H&P Results - Labs CBC & Chem 7: 02/09/18 20:08 02/09/18 20:08 Labs: LFTS reviewed -- noted tranaminase levels elevated as well as bilirubin level and Alk Phos elevation - Assessment and plan (1) Acute hepatitis Current Visit: Yes Status: Acute Assessment and plan: 1. Will hydrate with IVF fluids, provide nausea control as necessary. 2. Trend LFT's, amylase, and lipase. 3. Hepatitis serologies pending for Hepatitis A. 4. Consult GI for assistance. 5. I also ordered Monospot and EBV serologies -- low suspicion. (2) GERD (gastroesophageal reflux disease) Current Visit: Yes Status: Chronic Assessment and plan: 1. Will place on PPI. 2. Monitor for any GI blood loss, but patient denies any reports thereof. Qualifiers: Esophagitis presence: esophagitis presence not specified Qualified Code(s) : K21.9 - Gastro-esophageal reflux disease without esophagitis (3) Opiate dependence Current Visit: Yes Status: Chronic Assessment and plan: 1. I contacted pharmacy to verify Methadone use. Patient reportedly receives Methadone from clinic in person. Need to verify and then prescribe once verified. 2. Pharmacy to verify in the morning with his clinic during business hours. Per pharmacy, [facility] report did not list methadone. Qualifiers: Substance use status: in remission Qualified Code(s): F11.21 - Opioid dependence, in remission (4) DVT prophylaxis Current Visit: Yes Status: Acute Assessment and plan: 1. Heparin SQ.
[2018-02-10] MEDS: 0.9 % Sodium Chloride w KCl 20 MEQ/1,000 ML MLS IVC SCH ×2 (04:39→11:57)
[2018-02-10] MEDS: *HR* Heparin 5,000 UNIT/ML VIAL SQ SCH ×2 (04:40→17:49)
[2018-02-10] MEDS: Pantoprazole 40 MG VIAL IVP SCH ×2 (04:41→17:50)
[2018-02-10] MEDS: Ibuprofen 400 MG TABLET PO PRN ×2 (04:42→19:41)
[2018-02-10 05:51] LABS: Basophils % 0.3 %; Eosinophils # 0.2 K/mcL (0.0-0.6); Eosinophils % 2.8 %; Hematocrit 32.6 % (37.5-50.1); Hemoglobin 11.2 g/dL (12.9-16.9); Immature Granulocytes % 0.2 % (0-4); Lymphocytes # 1.4 K/mcL (0.6-4.6); Lymphocytes % 22.4 %; Mean Corpuscular HGB Conc 34.4 g/dL (31.6-35.5); Mean Corpuscular Hemoglobin 30.4 pg (28.0-33.3); Mean Corpuscular Volume 88.6 fL (83.0-100.0); Mean Platelet Volume 11.3 fL (9.4-12.4); Monocytes # 0.7 K/mcL (0.0-1.3); Monocytes % 11.3 %; Neutrophils # 3.8 K/mcL (1.6-8.9); Platelet Count 162 K/mcL (140-400); Red Blood Count 3.68 M/mcL (4.19-5.50); Red Cell Distribution Width 17.5 % (11.5-14.5)
[2018-02-10 05:56] LABS: INR 1.1; Prothrombin Time 12.8 Seconds (9.4-12.1)
[2018-02-10 05:59] LABS: Activated Partial Thrombo Time 34.9 Seconds (26.0-36.0)
[2018-02-10 06:12] LABS: Alanine Aminotransferase > 500 Units/L (7-52); Albumin 3.1 g/dL (3.5-5.7); Albumin/Globulin Ratio 0.9 (1.1-2.2); Alkaline Phosphatase 148 Units/L (34-104); Amylase 25 Units/L (29-103); Aspartate Amino Transferase 510 Units/L (13-39); BUN/Creatinine Ratio 9 (6-26); Bilirubin,Direct 8.4 mg/dL (0.0-0.2); Bilirubin,Indirect 4.7 mg/dL (0.0-1.2); Bilirubin,Total 13.1 mg/dL (0.3-1.0); Blood Urea Nitrogen 7 mg/dL (6-20); Calcium 8.5 mg/dL (8.6-10.3); Carbon Dioxide 24 mEq/L (23-29); Chloride 104 mEq/L (98-107); Cholesterol 134 mg/dL (< 200); Globulin 3.4 g/dL (2.4-3.5); Glucose 111 mg/dL (70-105); HDL Cholesterol < 3 mg/dL (40-59); Lipase 24 Units/L (11-82); Magnesium 1.9 mg/dL (1.6-2.6); Osmolality,Calculated 277 (280-300); Potassium 3.5 mEq/L (3.5-5.1); Sodium 134 mEq/L (136-145); Total Protein 6.5 g/dL (6.4-8.9); Triglycerides 370 mg/dL (< 150); eGFR For Non-African Americans > 60 (> 60)
[2018-02-10 06:24] LABS: Hepatitis A Antibody IgM Grayzone (Nonreactive)
[2018-02-10] MEDS: Methadone Oral Concentrate 10 MG/ML PO SCH (09:59)
--- NOTE | 2018-02-10 11:41 | Gastroenterology Consult Note ---
<Charli Dominguez Tisha - Last Filed: 02/10/18 11:39> Date of Encounter: 02/10/18 Time of Encounter: 10:20 - Assessment and plan (1) Hepatitis A Status: Acute Assessment and plan: Hepatitis A was in grayzone, retest in 1 week. Continue to monitor hepatic panel daily. Acetaminophen level < 10. Check salicylate and urine tox screen. Check MRCP. Qualifiers: Hepatic coma status: without hepatic coma Qualified Code(s): B15.9 - Hepatitis A without hepatic coma (2) Hepatitis C antibody test positive Status: Acute Assessment and plan: Hep C screening was positive on 12/29/17 but viral load was undetectable on 12/30/17. (3) RUQ pain Status: Acute Assessment and plan: Gallbladder ultrasound showed gallbladder wall thickening, sludge or small stones in gallbladder, and small amount of pericholecystic fluid. The patient demonstrated a sonographic Brown sign per the project technician. Consider consulting Surgery for evaluation. - Time Spent With Patient Total time spent is greater than 50% in coordination of care (as documented) at patient's floor/unit and/or counseling patient: GI History of Present Illness - Data of Consult Patient: known to practice within the last 3 years Consult date: 02/10/18 Requesting Physician: Shellie Benítez MD - Consult Narrative Reason for consult: Hepatitis A History of present illness: Mr. Mccullough is a 48 year old male with PMHx of hepatitis A and C who was hospitalized in December 2017 with hepatitis A. At that time TB 11.7, AST 200, ALT >500. TB had decreased to 8.9 on 02/03/2018. Hep C screening was positive on 12/29/17 but viral load was undetectable on 12/30/17. Since his last admission, his symptoms improved but they never fully resolved. Then, over the last few days, his abdominal pain, appetite loss, and jaundice worsened. He reports iveth colored stool. Patient had a gallbladder ultrasound performed in the ER which revealed gallbladder wall thickening, sludge or small stones in gallbladder, and small amount of pericholecystic fluid. On admission, TB 13.7, AST 515, ALT >500, alk phos 157. Procedure: None NSAIDs: None Anticoagulation: None Past Med Surg Social Fam HX - Past Medical History Medical history: hepatitis (hepatitis C) Psychiatric history: no psych history - Past Surgical History Surgical History: orthopedic, other Additional surgical history: r hand. r shoulder - Social History Smoking Status: Current every day smoker Smokeless Tobacco Status: No Alcohol use: none Drug use: IV Drug Use (clean last 2 months per patient; currently enrolled in [facility] clinic locally) - Family History Mother Name: Ernestina Wu Age: 76 Living Status: Still Living Hx Family Cancer: Yes (Lung and breast cancer.) Hx Family GI Disorders: No Hx Family Neuromuscular Disorders: Yes (Arthritis) - Gastrointestinal Gastrointestinal: Present: as per HPI - Constitutional Constitutional: as per HPI - EENT Eyes: as per HPI Ears: Present: as per HPI Nose, mouth and throat: Present: as per HPI - Cardiovascular Cardiovascular ROS: Present: as per HPI - Respiratory Respiratory IM: Present: as per HPI - Genitourinary Genitourinary: Absent: change in color, Urinary frequency - Neurological ROS Neurological GI: Present: as per HPI - Hematologic/Lymphatic Hematologic/Lymphatic pediatric: Present: as per HPI - Musculoskeletal Musculoskeletal ROS GI: Present: as per HPI - Integumentary Integumentary GI: Present: as per HPI - Psychiatric ROS Psychiatric GI: Present: as per HPI - Endocrine Endocrine IM: Present: as per HPI - Constitutional Vitals: Temp Pulse Resp BP Pulse Ox 98.1 F 45 15 99/58 99 02/10/18 10:44 02/10/18 10:44 02/10/18 10:44 02/10/18 10:44 02/10/18 10:44 General appearance: Present: cooperative, A&O X 3, no acute distress, answers questions appropriately - Head Head exam: Present: atraumatic, normocephalic - Eye Eye exam: Present: scleral icterus - ENT ENT exam: Present: mucous membranes moist - Neck Neck exam general surgery: Present: normal inspection, trachea midline - Respiratory Respiratory exam: Present: CTAB. Absent: rales, rhonchi - Cardiovascular Cardiovascular exam: Present: RRR, +S1, +S2 - GI/Abdominal GI/Abdominal exam: Present: soft, tenderness (RUQ), no peritoneal signs. Absen t: distended, firm, guarding - Rectal Rectal exam: Present: deferred - Extremities Exam Extremities exam: Present: warm - Neurological Exam Neurological exam: Present: no focal deficits - Psychiatric Psychiatric exam: Present: normal affect, normal mood - Skin Skin exam: Present: dry, intact, warm. Absent: normal color (Jaundice) Results - Labs CBC & Chem 7: 02/10/18 05:21 02/10/18 05:21 Labs: Last Result Calcium 8.5 mg/dL (8.6-10.3) L 02/10/18 05:21 Triglycerides 370 mg/dL (< 150) H 02/10/18 05:21 Entire Visit Hgb 11.2 g/dL (12.9-16.9) L 02/10/18 05:21 Hct 32.6 % (37.5-50.1) L 02/10/18 05:21 PT 12.8 Seconds (9.4-12.1) H 02/10/18 05:21 Total Bilirubin 13.1 mg/dL (0.3-1.0) H 02/10/18 05:21 AST 510 Units/L (13-39) H 02/10/18 05:21 ALT > 500 Units/L (7-52) H 02/10/18 05:21 Amylase 25 Units/L (29-103) L 02/10/18 05:21 Lipase 24 Units/L (11-82) 02/10/18 05:21 Acetaminophen < 10 mcg/mL (10-20) L 02/09/18 20:08 - ABG ABG results: PT/INR, D-dimer PT 12.8 Seconds (9.4-12.1) H 02/10/18 05:21 Consult Discharge Plan - Plan Instructions: Viral Hepatitis A (DC), Gastroesophageal Reflux Disease (DC) Additional Instructions: A follow up apt. has been requested. G.I. will contact PT at home. Follow up with PCP Referrals: Dieter Mckee DO [Partnered Physician] - 02/24/18 10:50 am Freddie Diego MD [Primary Care Provider] - 02/18/18 10:15 am Kathy Seo MD [Partnered Physician] - 03/05/18 3:50 pm (Web request sent on 02/12 ) Prescriptions: RX: Nicotine Patch [Nicoderm] 21 mg TD DAILY PRN #30 patch.td24 PRN Reason: Agitation RX: Omeprazole [PriLOSEC] 20 mg PO DAILY #30 capsule.dr <Sai Echeverria - Last Filed: 02/22/18 22:12> - Time Spent With Patient Total time spent is greater than 50% in coordination of care (as documented) at patient's floor/unit and/or counseling patient: GI History of Present Illness - Data of Consult Requesting Physician: Shellie Benítez MD - Consult Narrative History of present illness: Mr. Mccullough is a 48 year old male - Constitutional Vitals: Temp Pulse Resp BP Pulse Ox 98.0 F 48 16 94/54 98 02/12/18 10:48 02/12/18 10:48 02/12/18 10:48 02/12/18 10:48 02/12/18 10:48 Results - Labs CBC & Chem 7: 02/11/18 08:17 02/11/18 08:17 Labs: Last Result Calcium 8.4 mg/dL (8.6-10.3) L 02/11/18 08:17 Triglycerides 370 mg/dL (< 150) H 02/10/18 05:21 Salicylates < 2.5 mg/dL (15.0-30.0) L 02/10/18 11:38 Entire Visit Hgb 11.9 g/dL (12.9-16.9) L 02/11/18 08:17 Hct 35.5 % (37.5-50.1) L 02/11/18 08:17 PT 13.2 Seconds (9.4-12.1) H 02/12/18 05:49 Total Bilirubin 13.6 mg/dL (0.3-1.0) H 02/12/18 05:49 AST 490 Units/L (13-39) H 02/12/18 05:49 ALT > 500 Units/L (7-52) H 02/12/18 05:49 Amylase 25 Units/L (29-103) L 02/10/18 05:21 Lipase 24 Units/L (11-82) 02/10/18 05:21 Acetaminophen < 10 mcg/mL (10-20) L 02/09/18 20:08 - ABG ABG results: PT/INR, D-dimer PT 13.2 Seconds (9.4-12.1) H 02/12/18 05:49 - Attending Attestation Patient with hx of hepatitis A and C. Do not feel it is acute cholecystitis. Surgery has been also consulted. Supportive management. I examined this patient and my medical decision-making was reviewed with the Resident Physician. I agree with the documented findings, disposition and treat ment plan as described except to the extent set forth below.
[2018-02-10] MEDS ORDERED: Nicotine 21 MG PATCH.TD24 TD PRN (14:35)
--- NOTE | 2018-02-10 14:52 | General Surgery Consult Note ---
Date of Encounter: 02/10/18 Time of Encounter: 14:37 Assessment and Plan (1) RUQ pain Current Visit: Yes Status: Acute Possibly multi-factorial causes of RUQ pain, we will treat for cholecystitis but must rule out or fully treat hepatitis before any surgical intervention can be considered. MRCP showed contracted gallbladder with sludge v aren tones and borderline wall thickening but no biliary duct dilation or choledocholithiasis. - continue IVF - continue supportive care and non- opioid pain management - start medical treatment with zosyn - no surgical intervention planned at this time - hepatic panel again with 4 am labs Surgery will continue to follow (2) Acute hepatitis Current Visit: Yes Status: Acute GI consulted - agree with retest for hep A per their recommendations - positive for hep C with low viral load months ago but patient admits to using since then (3) Pancreatic cyst Current Visit: Yes Status: Acute (4) Opiate dependence Current Visit: Yes Status: Chronic Possible method of exposure - treatment per primary team Qualifiers: Substance use status: in remission Qualified Code(s): F11.21 - Opioid dependence, in remission History of Present Illness Consult date: 02/10/18 Reason for consult: abdominal pain Requesting physician: Shellie Benítez History of present illness: 48 y/o male presented to ED after evaluated by PCP for jaundice and found to have elevated liver enzymes. He has diffuse abdominal pain that is dull and achy - worse in epigastric region since last Friday . Pain is worse with bowel movements but unchanged by food. He denies constipation, nausea, vomiting or diarrhea. His last bowel movements yesterday was abebe green but no bright red, dark black or white mucus. IN ED, US showed gallbladder wall thickening and possible sludge v small stones. He was evaluated by GI and found to have hepatitis C without a viral load and hep A that is in abebe zone. MRCP showed contracted gallbladder with sludge and borderline wall thickening but no biliary duct dilation or choledocholithiasis. Pancreatic cysts 3-4 mm at junction of tail and body read as likely to be benign. He has been able to tolerate a regular meal. He denies sick contacts, recent travel or eating anywhere unusual except [place]. He is being treated for opioid dependence with methadone but admits to using last week. He has tobacco 30 pk yr history. He has history of alcohol abuse but stopped drinking 5 years ago. He doesn't know when he was exposed to hep C. He has no other know medical conditions- denies IBS, ulcerative colitis or crohns. His father had gallbladders removed due to it "turning into a stone" . His only past surgical history was shoulder repair - he had no adverse reactions to anesthesia. Past Med Surg Social Fam HX - Past Medical History Medical history: hepatitis (hepatitis C) Psychiatric history: no psych history - Past Surgical History Surgical History: orthopedic, other Additional surgical history: r hand. r shoulder - Social History Smoking Status: Current every day smoker Smokeless Tobacco Status: No Alcohol use: none Drug use: IV Drug Use (clean last 2 months per patient; currently enrolled in [facility] locally) - Family History Mother Name: Ernestina Wu Age: 76 Living Status: Still Living Hx Family Cancer: Yes (Lung and breast cancer.) Hx Family GI Disorders: No Hx Family Neuromuscular Disorders: Yes (Arthritis) Medications and Allergies Methadone Oral Concentrate [Methadone] 60 mg PO DAILY 02/10/18 [History] 3 Allergy/AdvReac Type Severity Reaction Status Date / Time hydrocodone AdvReac Itching Verified 12/30/17 11:25 Review of Systems All systems PM: The remainder of the systems were reviewed and are negative - Constitutional fatigue, no chills, no fever(s) - Cardiovascular no chest pain, no irregular heart rhythm, no palpitations - Respiratory no dyspnea, no wheezing, no chest congestion - Gastrointestinal abdominal pain, change in stool character, no coffee ground emesis, no constipation, no hematemesis, no hematochezia, no nausea, no vomiting - Genitourinary difficulty urinating, no hematuria, no nocturia, no urinary frequency - Musculoskeletal no arthralgias, no atrophy, no muscle weakness - Integumentary jaundice - Neurological no frequent falls, no headache(s), no tingling - Psychiatric memory loss, no confusion, no difficulty concentrating General Surgery Exam Initial Vital Signs Temp Pulse Resp BP Pulse Ox 98.6 F 64 15 118/78 100 02/09/18 19:31 02/09/18 19:31 02/09/18 19:31 02/09/18 19:31 02/09/18 19:31 - General physical appearance well developed, well nourished, no distress - Eyes PERRL, normal ocular movement, icteric - ENT normal pinna, normal nares, no hearing loss, dry mucosa - Respiratory normal expansion, normal respiratory effort, clear to percussion - Cardiovascular Cardiovascular exam: Present: RRR, no murmurs/rubs/gallops - Abdomen Abdomen general surgery: Present: bowel sounds present, soft Abdominal Tenderness: Present: epigastic, RUQ Hernia: Present: none - Integumentary Integumentary general surgery: Present: warm and dry, other (jaundice). Absent : diaphoresis - Neurologic Present: CN 2-12 grossly intact, normal coordination, normal sensation - Musculoskeletal Present: normal gait, normal posture - Psychiatric Psychiatric general surgery: Present: A&Ox3, speech is normal, memory intact Exam Initial Vital Signs Temp Pulse Resp BP Pulse Ox 98.6 F 64 15 118/78 100 02/09/18 19:31 02/09/18 19:31 02/09/18 19:31 02/09/18 19:31 02/09/18 19:31 Results - Labs 02/10/18 05:21 02/10/18 05:21 Abnormal lab results RBC 3.68 M/mcL (4.19-5.50) L 02/10/18 05:21 Hgb 11.2 g/dL (12.9-16.9) L 02/10/18 05:21 Hct 32.6 % (37.5-50.1) L 02/10/18 05:21 RDW 17.5 % (11.5-14.5) H 02/10/18 05:21 PT 12.8 Seconds (9.4-12.1) H 02/10/18 05:21 Sodium 134 mEq/L (136-145) L 02/10/18 05:21 Glucose 111 mg/dL (70-105) H 02/10/18 05:21 Calculated Osmolality 277 (280-300) L 02/10/18 05:21 Calcium 8.5 mg/dL (8.6-10.3) L 02/10/18 05:21 Total Bilirubin 13.1 mg/dL (0.3-1.0) H 02/10/18 05:21 Direct Bilirubin 8.4 mg/dL (0.0-0.2) H 02/10/18 05:21 Indirect Bilirubin 4.7 mg/dL (0.0-1.2) H 02/10/18 05:21 AST 510 Units/L (13-39) H 02/10/18 05:21 ALT > 500 Units/L (7-52) H 02/10/18 05:21 Alkaline Phosphatase 148 Units/L (34-104) H 02/10/18 05:21 Albumin 3.1 g/dL (3.5-5.7) L 02/10/18 05:21 Albumin/Globulin Ratio 0.9 (1.1-2.2) L 02/10/18 05:21 Triglycerides 370 mg/dL (< 150) H 02/10/18 05:21 VLDL Cholesterol, Calc 74 mg/dL (< 31) H 02/10/18 05:21 HDL Cholesterol < 3 mg/dL (40-59) L 02/10/18 05:21 Amylase 25 Units/L (29-103) L 02/10/18 05:21 Urine Color [place] (Yellow) A 02/09/18 20:20 Urine Clarity Turbid (Clear) A 02/09/18 20:20 Urine Bilirubin Large (Negative) H 02/09/18 20:20 Ur Leukocyte Esterase Small (Negative) H 02/09/18 20:20 Urine Mucus Many (Few) H 02/09/18 20:20 Ur Culture Indicated? YES (NO) A 02/09/18 20:20 Salicylates < 2.5 mg/dL (15.0-30.0) L 02/10/18 11:38 Acetaminophen < 10 mcg/mL (10-20) L 02/09/18 20:08 Hepatitis A IgM Ab Grayzone (Nonreactive) H 02/09/18 20:08 Hepatitis C Ab Screen Reactive (Nonreactive) H 02/09/18 20:08 Diabetes panel 02/10/18 Range/Units 05:21 Sodium 134 L (136-145) mEq/L Potassium 3.5 (3.5-5.1) mEq/L Chloride 104 (98-107) mEq/L Carbon Dioxide 24 (23-29) mEq/L BUN 7 (6-20) mg/dL Creatinine 0.78 (0.70-1.30) mg/dL Glucose 111 H (70-105) mg/dL Calcium 8.5 L (8.6-10.3) mg/dL AST 510 H (13-39) Units/L ALT > 500 H (7-52) Units/L Alkaline Phosphatase 148 H (34-104) Units/L Albumin 3.1 L (3.5-5.7) g/dL Triglycerides 370 H (< 150) mg/dL HDL Cholesterol < 3 L (40-59) mg/dL Calcium panel 02/10/18 Range/Units 05:21 Calcium 8.5 L (8.6-10.3) mg/dL Albumin 3.1 L (3.5-5.7) g/dL Pituitary panel 02/10/18 Range/Units 05:21 Sodium 134 L (136-145) mEq/L Potassium 3.5 (3.5-5.1) mEq/L Chloride 104 (98-107) mEq/L Carbon Dioxide 24 (23-29) mEq/L BUN 7 (6-20) mg/dL Creatinine 0.78 (0.70-1.30) mg/dL Glucose 111 H (70-105) mg/dL Calcium 8.5 L (8.6-10.3) mg/dL Adrenal panel 02/10/18 Range/Units 05:21 Sodium 134 L (136-145) mEq/L Potassium 3.5 (3.5-5.1) mEq/L Chloride 104 (98-107) mEq/L Carbon Dioxide 24 (23-29) mEq/L BUN 7 (6-20) mg/dL Creatinine 0.78 (0.70-1.30) mg/dL Glucose 111 H (70-105) mg/dL Calcium 8.5 L (8.6-10.3) mg/dL Total Bilirubin 13.1 H (0.3-1.0) mg/dL AST 510 H (13-39) Units/L ALT > 500 H (7-52) Units/L Alkaline Phosphatase 148 H (34-104) Units/L Albumin 3.1 L (3.5-5.7) g/dL All other labs normal. Consult Discharge Plan - Plan Referrals: Myels Broussard MD [Family Provider] - Freddie Diego MD [Primary Care Provider] -
[2018-02-10] MEDS: Piperacillin/Tazobactam 3.375 GM in 0.9 % Sodium Chloride Mini Bag 100 ML IVPB SCH ×2 (15:46→23:54)
--- NOTE | 2018-02-10 15:47 | Internal Med Progress Note ---
Hospitalist Progress Note - Encounter Date of Encounter: 02/10/18 Time of Encounter: 09:00 - Subjective Interval History: patient was seen and examined at bedside reports that his abdominal pain has improved. denies N/V/D while admitted. has no chest pain, SOB, fever, chills has tolerated diet - Exam Vitals: Temp Pulse Resp BP Pulse Ox 98.1 F 45 15 99/58 99 02/10/18 10:44 02/10/18 10:44 02/10/18 10:44 02/10/18 10:44 02/10/18 10:44 Exam: General: Patient is alert, oriented, no acute distress, jaundiced, thin Head: atraumatic, normocephalic, Eye: normal appearance, PERRL, iceteric sclera ENT: mucous membranes moist, normal external ear exam Neck: normal inspection, trachea midline, full ROM, no carotid bruits Chest: normal inspection, symmetric chest rise Respiratory: Good respiratory effort. Bilateral breath sounds are clear without wheezing, crackles, or rhonchi. Cardiovascular: Regular rate and rhythm. s1 and s2 No clicks, rubs, gallops, or murmors. Abdomen: Bowel sounds present normoactive x-4 quadrants. Abdomen is soft, nondistended. no Epigastric tenderness. mild RUQ pain on deep palpation, +ve hepatosplenomegaly musculoskeletal: Spontaneously moving all extremities. no edema, no calf tenderness Skin: warm, dry, intact. Neuro: Alert and oriented x4. Sensation light touch intact. Cranial nerves 2- 12 is intact. no focal deficit Psych: Patient's affect is normal - Assessment and Plan (1) Acute hepatitis Current Visit: Yes Status: Acute Assessment and Plan: Hepatitis A was in grayzone - will retest in one week as per GI recs Hep C screening was positive on 12/29/17 but viral load was undetectable on . Continue to monitor hepatic panel daily along with cogas TB 13.7, AST 515, ALT >500, alk phos 157 Acetaminophen level < 10. Utox ordered ASA <2.5 MRCP ordered as RUQ US showed positive alexander sign and gallbladder wall thickening Gi and surgery on board will follow recommendations on zosyn IV (2) GERD (gastroesophageal reflux disease) Current Visit: Yes Status: Chronic Assessment and Plan: continue PPI (3) Opiate dependence Current Visit: Yes Status: Chronic Assessment and Plan: methadone dose was verified continue methadone 60 mg daily (4) Elevated triglycerides with high cholesterol Current Visit: Yes Status: Acute Assessment and Plan: was counseled on nutrition will consider statins once LFTS are stabalized GI on board Amylase and Lipase WNL (5) DVT prophylaxis Current Visit: Yes Status: Acute Assessment and Plan: heparin SC - Time Spent with Patient Total time spent is greater than 50% in coordination of care (as documented) at patient's floor/unit and/or counseling patient: Internal Medicine: Result - Labs CBC & Chem 7: 02/10/18 05:21 02/10/18 05:21 Labs: Short CBC 02/10/18 Range/Units 05:21 WBC 6.1 (4.3-11.1) K/mcL Hgb 11.2 L (12.9-16.9) g/dL Hct 32.6 L (37.5-50.1) % Plt Count 162 (140-400) K/mcL Neutrophils # 3.8 (1.6-8.9) K/mcL BMP 02/10/18 05:21 Sodium 134 L Potassium 3.5 Chloride 104 Carbon Dioxide 24 BUN 7 Creatinine 0.78 Glucose 111 H Calcium 8.5 L Liver Function 02/10/18 Range/Units 05:21 Total Bilirubin 13.1 H (0.3-1.0) mg/dL Direct Bilirubin 8.4 H (0.0-0.2) mg/dL AST 510 H (13-39) Units/L ALT > 500 H (7-52) Units/L Alkaline Phosphatase 148 H (34-104) Units/L Albumin 3.1 L (3.5-5.7) g/dL - ABG Interpretation ABG results: PT/INR, D-dimer PT 12.8 Seconds (9.4-12.1) H 02/10/18 05:21 - Impressions Impressions Abdomen MRI 02/10/18 10:54 IMPRESSION: 1. No biliary duct dilatation or evidence for choledocholithiasis. 2. Gallbladder is contracted but appears to contain mild sludge or tiny stones. In addition, there is borderline gallbladder wall thickening and pericholecystic edema. A HIDA scan can be performed to evaluate for acute cholecystitis if desired. 3. Hepatosplenomegaly. No evidence of hepatic steatosis. 4. Spleen contains scattered lesions measuring up to 1 cm which are incompletely characterized but stable from 2017. 5. A 3-4 mm cystic lesion at the junction of the pancreatic body and tail is nonspecific but almost certainly benign in a patient of this age. D/ / Glynn Cartagena MD / Glynn Cartagena MD Interpreting Provider: Glynn Cartagena MD Consult Discharge Plan - Plan Referrals: Myles Broussard MD [Family Provider] - Freddie Diego MD [Primary Care Provider] - (2) GERD (gastroesophageal reflux disease) Qualifiers: Esophagitis presence: esophagitis presence not specified Qualified Code(s): K21.9 - Gastro-esophageal reflux disease without esophagitis (3) Opiate dependence Qualifiers: Substance use status: in remission Qualified Code(s): F11.21 - Opioid dependence, in remission
[2018-02-11] MEDS: Ibuprofen 400 MG TABLET PO PRN ×2 (03:48→20:51)
[2018-02-11] MEDS: Methadone Oral Concentrate 10 MG/ML PO SCH (06:10)
[2018-02-11] MEDS: Pantoprazole 40 MG VIAL IVP SCH ×2 (06:10→17:45)
[2018-02-11] MEDS: *HR* Heparin 5,000 UNIT/ML VIAL SQ SCH ×2 (06:11→17:48)
[2018-02-11] MEDS: Piperacillin/Tazobactam 3.375 GM in 0.9 % Sodium Chloride Mini Bag 100 ML IVPB SCH ×3 (07:48→23:47)
[2018-02-11 08:41] LABS: Hematocrit 35.5 % (37.5-50.1); Hemoglobin 11.9 g/dL (12.9-16.9); Mean Corpuscular HGB Conc 33.5 g/dL (31.6-35.5); Mean Corpuscular Volume 89.4 fL (83.0-100.0); Mean Platelet Volume 11.6 fL (9.4-12.4); Platelet Count 166 K/mcL (140-400); Red Blood Count 3.97 M/mcL (4.19-5.50); Red Cell Distribution Width 17.9 % (11.5-14.5)
[2018-02-11 08:47] LABS: INR 1.1; Prothrombin Time 12.4 Seconds (9.4-12.1)
[2018-02-11 09:04] LABS: Alanine Aminotransferase > 500 Units/L (7-52); Albumin 2.9 g/dL (3.5-5.7); Albumin/Globulin Ratio 0.8 (1.1-2.2); Alkaline Phosphatase 153 Units/L (34-104); Aspartate Amino Transferase 557 Units/L (13-39); BUN/Creatinine Ratio 12 (6-26); Bilirubin,Direct 8.5 mg/dL (0.0-0.2); Bilirubin,Indirect 4.9 mg/dL (0.0-1.2); Bilirubin,Total 13.4 mg/dL (0.3-1.0); Blood Urea Nitrogen 9 mg/dL (6-20); Calcium 8.4 mg/dL (8.6-10.3); Carbon Dioxide 24 mEq/L (23-29); Chloride 108 mEq/L (98-107); Globulin 3.5 g/dL (2.4-3.5); Glucose 91 mg/dL (70-105); Osmolality,Calculated 280 (280-300); Potassium 4.1 mEq/L (3.5-5.1); Sodium 136 mEq/L (136-145); Total Protein 6.4 g/dL (6.4-8.9); eGFR For Non-African Americans > 60 (> 60)
--- NOTE | 2018-02-11 10:24 | Internal Med Progress Note ---
Hospitalist Progress Note - Encounter Date of Encounter: 02/11/18 Time of Encounter: 08:00 - Subjective Interval History: patient was seen and examined at bedside reports that his abdominal pain has nearly resolved. denies N/V/D has no chest pain, SOB, fever, chills has tolerated diet - Exam Vitals: Temp Pulse Resp BP Pulse Ox 97.7 F 56 18 93/55 100 02/11/18 06:40 02/11/18 06:40 02/11/18 06:40 02/11/18 06:40 02/11/18 06:40 Exam: General: Patient is alert, oriented, no acute distress, jaundiced, thin Head: atraumatic, normocephalic, Eye: normal appearance, PERRL, iceteric sclera ENT: mucous membranes moist, normal external ear exam Neck: normal inspection, trachea midline, full ROM, no carotid bruits Chest: normal inspection, symmetric chest rise Respiratory: Good respiratory effort. Bilateral breath sounds are clear without wheezing, crackles, or rhonchi. Cardiovascular: Regular rate and rhythm. s1 and s2 No clicks, rubs, gallops, or murmors. Abdomen: Bowel sounds present normoactive x-4 quadrants. Abdomen is soft, nondistended. no Epigastric tenderness. mild RUQ pain on deep palpation ( improved) +ve hepatosplenomegaly musculoskeletal: Spontaneously moving all extremities. no edema, no calf tenderness Skin: warm, dry, intact. Neuro: Alert and oriented x4. Sensation light touch intact. Cranial nerves 2- 12 is intact. no focal deficit Psych: Patient's affect is normal - Assessment and Plan (1) Acute hepatitis Current Visit: Yes Status: Acute Assessment and Plan: Hepatitis A was in grayzone - will retest in one week as per GI recs Hep C screening was positive on 12/29/17 but viral load was undetectable on . Continue to monitor hepatic panel daily along with coags transaminitis trended up Acetaminophen level < 10. Utox ordered ASA <2.5 Gi and surgery on board on zosyn IV RUQ US showed positive alexander sign and gallbladder wall thickening MRCP 02/10- 1. No biliary duct dilatation or evidence for choledocholithiasis. 2. Gallbladder is contracted but appears to contain mild sludge or tiny stones. In addition, there is borderline gallbladder wall thickening and pericholecystic edema. A HIDA scan can be performed to evaluate for acute cholecystitis if desired. 3. Hepatosplenomegaly. No evidence of hepatic steatosis. 4. Spleen contains scattered lesions measuring up to 1 cm which are incompletely characterized but stable from 2017. 5. A 3-4 mm cystic lesion at the junction of the pancreatic body and tail is nonspecific but almost certainly benign in a patient of this age. (2) GERD (gastroesophageal reflux disease) Current Visit: Yes Status: Chronic Assessment and Plan: continue PPI (3) Opiate dependence Current Visit: Yes Status: Chronic Assessment and Plan: methadone dose was verified continue methadone 60 mg daily was counseled on drug abstinence Utox ordered - nursing staff aware (4) Elevated triglycerides with high cholesterol Current Visit: Yes Status: Acute Assessment and Plan: was counseled on nutrition will consider statins once LFTS are stabalized GI on board Amylase and Lipase WNL (5) DVT prophylaxis Current Visit: Yes Status: Acute Assessment and Plan: heparin SC - Time Spent with Patient Total time spent is greater than 50% in coordination of care (as documented) at patient's floor/unit and/or counseling patient: Internal Medicine: Result - Labs CBC & Chem 7: 02/11/18 08:17 02/11/18 08:17 Labs: Short CBC 02/11/18 Range/Units 08:17 WBC 6.5 (4.3-11.1) K/mcL Hgb 11.9 L (12.9-16.9) g/dL Hct 35.5 L (37.5-50.1) % Plt Count 166 (140-400) K/mcL BMP 02/11/18 08:17 Sodium 136 Potassium 4.1 Chloride 108 H Carbon Dioxide 24 BUN 9 Creatinine 0.78 Glucose 91 Calcium 8.4 L Liver Function 02/11/18 Range/Units 08:17 Total Bilirubin 13.4 H (0.3-1.0) mg/dL Direct Bilirubin 8.5 H (0.0-0.2) mg/dL AST 557 H (13-39) Units/L ALT > 500 H (7-52) Units/L Alkaline Phosphatase 153 H (34-104) Units/L Albumin 2.9 L (3.5-5.7) g/dL - ABG Interpretation ABG results: PT/INR, D-dimer PT 12.4 Seconds (9.4-12.1) H 02/11/18 08:17 - Impressions Impressions Abdomen MRI 02/10/18 10:54 IMPRESSION: 1. No biliary duct dilatation or evidence for choledocholithiasis. 2. Gallbladder is contracted but appears to contain mild sludge or tiny stones. In addition, there is borderline gallbladder wall thickening and pericholecystic edema. A HIDA scan can be performed to evaluate for acute cholecystitis if desired. 3. Hepatosplenomegaly. No evidence of hepatic steatosis. 4. Spleen contains scattered lesions measuring up to 1 cm which are incompletely characterized but stable from 2017. 5. A 3-4 mm cystic lesion at the junction of the pancreatic body and tail is nonspecific but almost certainly benign in a patient of this age. D/ / Glynn Cartagena MD / Glynn Cartagena MD Interpreting Provider: Glynn Cartagena MD Consult Discharge Plan - Plan Referrals: Freddie Diego MD [Primary Care Provider] - (2) GERD (gastroesophageal reflux disease) Qualifiers: Esophagitis presence: esophagitis presence not specified Qualified Code(s): K21.9 - Gastro-esophageal reflux disease without esophagitis (3) Opiate dependence Qualifiers: Substance use status: in remission Qualified Code(s): F11.21 - Opioid dependence, in remission
--- NOTE | 2018-02-11 13:21 | General Surgery Progress Note ---
Date of Encounter: 02/11/18 Time of Encounter: 12:30 - Assessment and Plan (1) Hyperbilirubinemia Current Visit: Yes Status: Acute TB- 13.1>13.4 Direct- 8.4>8.5 Indirect- 4.7>4.9 Will discuss further treatment recommendations with GI- Dr. Juwan Echeverria has seen and evaluated the patient and he feels symtpoms are related to acute Hepatitis A May discharge from a GI and surgery standpoint F/U with GI and surgery outpatient as scheduled. MRCP- MR/MR abdomen wo con IMPRESSION: 1. No biliary duct dilatation or evidence for choledocholithiasis. 2. Gallbladder is contracted but appears to contain mild sludge or tiny stones. In addition, there is borderline gallbladder wall thickening and pericholecystic edema. A HIDA scan can be performed to evaluate for acute cholecystitis if desired. 3. Hepatosplenomegaly. No evidence of hepatic steatosis. 4. Spleen contains scattered lesions measuring up to 1 cm which are incompletely characterized but stable from 2017. 5. A 3-4 mm cystic lesion at the junction of the pancreatic body and tail is nonspecific but almost certainly benign in a patient of this age. (2) Acute hepatitis Current Visit: Yes Status: Acute Hepatitis A- grayzone Hepatitis C- reactive Gastroenterology consulted for assessment and recommendations (3) Elevated liver enzymes Current Visit: Yes Status: Acute AST- 557 ALT- greater than 500 Alk Phos- 153 Continue to monitor levels (4) GERD (gastroesophageal reflux disease) Current Visit: Yes Status: Chronic PPI therapy BID Qualifiers: Esophagitis presence: esophagitis presence not specified Qualified Code(s) : K21.9 - Gastro-esophageal reflux disease without esophagitis (5) Opiate dependence Current Visit: Yes Status: Chronic Qualifiers: Substance use status: in remission Qualified Code(s): F11.21 - Opioid dependence, in remission (6) Tobacco abuse Current Visit: No Status: Chronic Subjective Patient reports: no new complaints, still having pain (unchanged per patient), tolerating a regular diet, voiding w/o difficulty, flatus, afebrile Objective Vital Signs - Last 8 Hours Temp Pulse Resp BP Pulse Ox 02/11/18 10:00 97.8 F 49 18 93/53 100 02/11/18 06:40 97.7 F 56 18 93/55 100 Intake and Output 10/09/18 10/10/18 10/10/18 23:59 07:59 15:59 Intake Total 1220 / 1220 100 / 100 500 / 500 Output Total 0 / 0 0 / 0 Balance 1220 / 1220 100 / 100 500 / 500 Intake: IV Fluids 1100 / 1100 100 / 100 100 / 100 KCl 20 mEq in 0.9% Sodium 1000 / 1000 Chloride 20 meq In 1,000 ml @ 125 mls/hr IVC .Q8H KRZYSZTOF Rx#: [id number] Zosyn 3.375 GM In 0.9 % Sodium 100 / 100 100 / 100 100 / 100 Chloride (Mini-Bag +) 100 ML @ 25 mls/hr IVPB Q8HR KRZYSZTOF Rx#: [id number] Oral 120 / 120 400 / 400 Output: Urine 0 / 0 0 / 0 Other: Meal Dinner Breakfast Percent of Meal Consumed 95% 90% Weight 71.8 kg Patient Weight 02/11/18 23:59 Weight 71.8 kg - General physical appearance well developed, well nourished, no distress - Eyes normal ocular movement, icteric - ENT normal mucosa, atraumatic, normocephalic - Neck Neck exam: trachea midline - Respiratory normal respiratory effort, clear to auscultation - Cardiovascular Cardiovascular exam: Present: bradycardia - Abdomen Abdomen: Present: bowel sounds present, soft, tender Abdominal Tenderness: epigastic, RUQ - Integumentary other (jaundiced) - Neurologic CN 2-12 grossly intact - Musculoskeletal normal gait, normal posture - Psychiatric oriented to time, oriented to person, oriented to place, speech is normal, memory intact - Labs 02/11/18 08:17 02/11/18 08:17 Diabetes panel 02/11/18 Range/Units 08:17 Sodium 136 (136-145) mEq/L Potassium 4.1 (3.5-5.1) mEq/L Chloride 108 H (98-107) mEq/L Carbon Dioxide 24 (23-29) mEq/L BUN 9 (6-20) mg/dL Creatinine 0.78 (0.70-1.30) mg/dL Glucose 91 (70-105) mg/dL Calcium 8.4 L (8.6-10.3) mg/dL AST 557 H (13-39) Units/L ALT > 500 H (7-52) Units/L Alkaline Phosphatase 153 H (34-104) Units/L Albumin 2.9 L (3.5-5.7) g/dL Calcium panel 02/11/18 Range/Units 08:17 Calcium 8.4 L (8.6-10.3) mg/dL Albumin 2.9 L (3.5-5.7) g/dL Pituitary panel 02/11/18 Range/Units 08:17 Sodium 136 (136-145) mEq/L Potassium 4.1 (3.5-5.1) mEq/L Chloride 108 H (98-107) mEq/L Carbon Dioxide 24 (23-29) mEq/L BUN 9 (6-20) mg/dL Creatinine 0.78 (0.70-1.30) mg/dL Glucose 91 (70-105) mg/dL Calcium 8.4 L (8.6-10.3) mg/dL Adrenal panel 02/11/18 Range/Units 08:17 Sodium 136 (136-145) mEq/L Potassium 4.1 (3.5-5.1) mEq/L Chloride 108 H (98-107) mEq/L Carbon Dioxide 24 (23-29) mEq/L BUN 9 (6-20) mg/dL Creatinine 0.78 (0.70-1.30) mg/dL Glucose 91 (70-105) mg/dL Calcium 8.4 L (8.6-10.3) mg/dL Total Bilirubin 13.4 H (0.3-1.0) mg/dL AST 557 H (13-39) Units/L ALT > 500 H (7-52) Units/L Alkaline Phosphatase 153 H (34-104) Units/L Albumin 2.9 L (3.5-5.7) g/dL Consult Discharge Plan - Plan Referrals: Freddie Diego MD [Primary Care Provider] - - Attending Attestation For this encounter, I have reviewed the DESKTOP TECHNICIAN or PA documentation, treatment plan, and medical decision making; and I have had face to face time with this patient.
[2018-02-12] MEDS ORDERED: 0.9 % Sodium Chloride 1,000 ML IVC SCH (03:45)
[2018-02-12] MEDS: Methadone Oral Concentrate 10 MG/ML PO SCH (06:06)
[2018-02-12] MEDS: Pantoprazole 40 MG VIAL IVP SCH (06:08)
[2018-02-12] MEDS: *HR* Heparin 5,000 UNIT/ML VIAL SQ SCH (06:10)
[2018-02-12 06:15] LABS: INR 1.2; Prothrombin Time 13.2 Seconds (9.4-12.1)
[2018-02-12 06:44] LABS: Alanine Aminotransferase > 500 Units/L (7-52); Albumin 2.7 g/dL (3.5-5.7); Albumin/Globulin Ratio 0.8 (1.1-2.2); Alkaline Phosphatase 139 Units/L (34-104); Aspartate Amino Transferase 490 Units/L (13-39); Bilirubin,Direct 8.3 mg/dL (0.0-0.2); Bilirubin,Indirect 5.3 mg/dL (0.0-1.2); Bilirubin,Total 13.6 mg/dL (0.3-1.0); Globulin 3.5 g/dL (2.4-3.5); Total Protein 6.2 g/dL (6.4-8.9)
[2018-02-12] MEDS: Piperacillin/Tazobactam 3.375 GM in 0.9 % Sodium Chloride Mini Bag 100 ML IVPB SCH (10:03)
[2018-02-12 10:51] VITALS: BP 94/54
--- NOTE | 2018-02-12 13:36 | Discharge Summary ---
- NOTES TO OUTPATIENT PROVIDER Notes to Outpatient Provider: follow up with GI for hepatits C management ( viral loads) and also for LFTs. surgery follow up for cholecystectomy. PCP to follow liver enzymes. elevated TG for PCP to follow levels and start statins once LFTS stable Date of Encounter: 02/12/18 Time of Encounter: 13:34 - Discharge Diagnosis (1) Acute hepatitis Priority: Primary Status: Acute (2) GERD (gastroesophageal reflux disease) Priority: Secondary Status: Chronic Qualifiers: Esophagitis presence: esophagitis presence not specified Qualified Code(s) : K21.9 - Gastro-esophageal reflux disease without esophagitis (3) Opiate dependence Priority: Secondary Status: Chronic Qualifiers: Substance use status: in remission Qualified Code(s): F11.21 - Opioid dependence, in remission (4) Elevated triglycerides with high cholesterol Priority: Secondary Status: Acute (5) DVT prophylaxis Priority: Secondary Status: Acute (6) Pancreatic cyst Priority: Secondary Status: Acute Hospital course: Mr. Mccullough is a 48 year old male with histry of IVDA on methadone recent diagnosis of hepatitis C presented to the ED with complaint of abdominal pain and increasing yellowing of his skin. in the ED hepatitis panel performed and he was positive for acute hepatitis A infection. hepatitis C Ab was positive. EBV negative. UA was ?positive - Ucx negative He was hospitalized roughly 1 month ago with acute hepatitis. At that time, he had a hepatitis C viral load which was undetectable. IN ED, US showed gallbladder wall thickening and possible sludge v small stones. he was started on IV Abx. He was evaluated by GI and found to have hepatitis C without a viral load and hep A that is in abebe zone. MRCP showed contracted gallbladder with sludge and borderline wall thickening but no biliary duct dilation or choledocholithiasis. Pancreatic cysts 3-4 mm at junction of tail and body read as likely to be benign. abx were discontinued as per surgery/GI recommendations as it was raiza that the symtpoms/ hyperbilirubinemia and transaminitis were related to acute Hepatitis A. LFTs and coags were followed and they began to trend down. he was cleared by surgery and GI to be discharged and to follow up as OP for cholecystectomy and to have Hepc viral loads and possible treatment initiated by GI team. he was counseled on alcohol, smoking and illicit drug use abstinence. Discharge discussed with: patient, programmer analyst consultant - Time Spent with Patient Total time spent providing and/or coordinating discharge services: - Discharge Medications Prescriptions: Nicotine Patch [Nicoderm] 21 mg TD DAILY PRN #30 patch.td24 PRN Reason: Agitation Omeprazole [PriLOSEC] 20 mg PO DAILY #30 capsule. Home Medications: Methadone Oral Concentrate [Methadone] 60 mg PO DAILY 02/10/18 [History] Nicotine Patch [Nicoderm] 21 mg TD DAILY PRN #30 patch.td24 02/12/18 [Rx] Omeprazole [PriLOSEC] 20 mg PO DAILY #30 capsule. 02/12/18 [Rx] Allergies/Adverse Reactions: 3 Allergy/AdvReac Type Severity Reaction Status Date / Time hydrocodone AdvReac Itching Verified 12/30/17 11:25 Date of admission: 02/11/18 15:40 Primary care physician: Freddie Diego MD - Constitutional Vitals: Temp Pulse Resp BP Pulse Ox 98.0 F 48 16 94/54 98 02/12/18 10:48 02/12/18 10:48 02/12/18 10:48 02/12/18 10:48 02/12/18 10:48 Exam: General: Patient is alert, oriented, no acute distress, jaundiced, thin Head: atraumatic, normocephalic, Eye: normal appearance, PERRL, iceteric sclera ENT: mucous membranes moist, normal external ear exam Neck: normal inspection, trachea midline, full ROM, no carotid bruits Chest: normal inspection, symmetric chest rise Respiratory: Good respiratory effort. Bilateral breath sounds are clear without wheezing, crackles, or rhonchi. Cardiovascular: Regular rate and rhythm. s1 and s2 No clicks, rubs, gallops, or murmors. Abdomen: Bowel sounds present normoactive x-4 quadrants. Abdomen is soft, nondistended. no Epigastric tenderness. mild RUQ pain on deep palpation ( improved) +ve hepatosplenomegaly musculoskeletal: Spontaneously moving all extremities. no edema, no calf tenderness Skin: warm, dry, intact. Neuro: Alert and oriented x4. Sensation light touch intact. Cranial nerves 2- 12 is intact. no focal deficit Psych: Patient's affect is normal - Patient Status Disposition: Home, Self-Care Condition: Good Overall status at discharge: patient is progressing back to baseline - Discharge Instructions Follow Up With: Dieter Mckee DO [Partnered Physician] - 02/24/18 10:50 am Freddie Diego MD [Primary Care Provider] - 02/18/18 10:15 am Kathy Seo MD [Partnered Physician] - 03/05/18 3:50 pm (Web request sent on ) - Diet and Activity Activity: increase activity as tolerated (avoid contact sports ) Diet: low fat, low cholesterol
== END 2018-02-12 15:24 | disposition home or self-care (01) ==
LOC: EMEROOARM 19:12 → 3ANU 19:12 → SUATTDRO 02-10 00:35 → 3ANU 02-10 01:57
PROVIDERS: ADMIT Family Medicine; ATTEND Internal Medicine